=== PATIENT | male | born 1980 | race Caucasian/White ===

== ENCOUNTER 2020-05-15 16:08 | Outpatient (REF) | payer OTHER, SELFPAY | END 2020-05-15 16:09 | disposition home or self-care (01) | LOC: HO.LAB 16:08 | PROVIDERS: Visit Provider Internal Medicine | DX: Z20.828 Contact with and (suspected) exposure to other viral communicable diseases (principal) | CPT/HCPCS: C9803; U0003 ==

== ENCOUNTER 2020-06-16 12:11 | Outpatient (REF) | payer OTHER, SELFPAY | END 2020-06-16 12:12 | disposition home or self-care (01) | LOC: HO.LAB 12:11 | PROVIDERS: Visit Provider Internal Medicine | DX: Z20.828 Contact with and (suspected) exposure to other viral communicable diseases (principal) | CPT/HCPCS: 36415; C9803; U0003 ==

== ENCOUNTER 2020-07-22 09:50 | Emergency (ER) | payer SELFPAY ==
[2020-07-22 10:19] VITALS: BP 142/91; PULSE 98; RESP 16; TEMP 36.9; O2SAT 99; BMI 33.3
--- NOTE | 2020-07-22 11:01 | ED.SKABFB ---
HPI - Skin/Abscess/Foreign Bdy General Chief complaint: Skin/Abscess/Foreign Body Stated complaint: INFECTION HAND Time Seen by Provider: 07/22/20 10:38 Source: patient Mode of arrival: ambulatory Limitations: no limitations History of Present Illness HPI narrative: 40-year-old male past history of eczema here with complaints of bilateral hand swelling, redness and pain times several days., the patient tells me his underlying eczema and is not currently using any medication. He tells me that 3 days ago he started a new job requiring him to wear gloves and he accidentally use latex gloves although he has an allergy. That night he noticed itching and swelling he tells me he has been scratching at the areas quite intensely. No fevers or chills. MD complaint: rash Related Data Previous Rx's Medication Instructions Recorded mupirocin 1 appl TOPICAL BID #15 g 07/22/20 prednisone 60 mg PO DAILY #15 tab 07/22/20 sulfamethoxazole-trimethoprim 1 tab PO Q12H #14 tab 07/22/20 [Bactrim DS] Allergies Allergy/AdvReac Type Severity Reaction Status Date / Time doxycycline [DOXYCYCLINE] Allergy Unknown HIVES Unverified 02/24/20 15:19 latex [LATEX] Allergy Unknown RASH Unverified 02/24/20 15:19 Penicillins [PENICILLINS] Allergy Unknown SWELLING Unverified 02/24/20 15:19 DETERGENT Allergy Intermediate RASH Uncoded 02/24/20 15:19 Review of Systems Review of Systems: Yes all other systems are reviewed and are negative Constitutional: Constitutional: Reports no additional constitutional complaints, Denies body ache(s), Denies chills, Denies fever(s), Denies headache(s) and Denies weakness Eyes: Eyes: Reports no additional eye complaints and Denies change in vision ENT: Reports system reviewed and no additional complaints, except as documented, Denies dizziness, Denies headache(s), Denies nasal congestion, Denies nasal discharge and Denies neck pain Cardiovascular: Cardiovascular: Reports no additional cardiovascular complaints, Denies chest pain, Denies leg edema and Denies dyspnea Respiratory: Respiratory: Reports no additional respiratory complaints, Denies cough and Denies dyspnea Gastrointestinal: Gastrointestinal: Reports no additional gastrointestinal complaints, Denies abdominal pain, Denies diarrhea, Denies nausea and Denies vomiting Genitourinary: Genitourinary: Denies urinary incontinence Musculoskeletal: Musculoskeletal: Reports no additional musculoskeletal complaints, Denies back pain, Denies arthralgias, Denies joint swelling, Denies neck pain, Denies numbness and Denies tingling Integumentary/Breasts: Skin/Breast: Reports system reviewed and no additional complaints, except as docu and Reports rash Neurologic: Reports system reviewed and no additional complaints, except as documented, Denies Abnormal speech present, Denies dizziness, Denies headache(s), Denies numbness, Denies tingling and Denies weakness PMFSH Past Medical History Attestation statement: The following information was validated with the patient. Source: old records reviewed and nursing notes reviewed Medical History Acute eczema Social History Social History Smoking Status: Current every day smoker Use of substances other than those prescribed or required for medical reasons: Yes Substance Use Type: Marijuana Substance Use Frequency: Daily Advance Directives: No Advance Directives Information Provided: No Physical Exam Vital Signs: Vital Signs: Last Vital Signs Temp 98.5 F 07/22/20 10:19 Pulse 98 07/22/20 10:19 Resp 16 07/22/20 10:19 BP 142/91 H 07/22/20 10:19 Pulse Ox 99 07/22/20 10:19 Body Mass Index 33.3 Const: General: cooperative, healthy appearing, comfortable and no acute distress Orientation/consciousness: patient oriented x3 Limitations: no limitations HENMT: Head: Yes normal to inspection Ears: hearing grossly normal bilaterally General nose exam: Normal external nose present Face and sinus: Yes normal facial exam Mouth: Normal oral and palatal mucosa present Throat: Yes posterior oropharynx normal Eyes: General: appearance normal, both eyes and all related structures Pupils: Equal, round and reactive pupils present Neck: Neck: Yes normal visual inspection Chest: Chest palpation & inspection: normal inspection of the chest Resp: Effort & Inspection: normal respiratory effort Auscultation: clear to auscultation bilaterally Cardio: Rate: regular rate Rhythm: regular rhythm Peripheral pulses: Peripheral pulses 2+ throughout GI: Inspection: Yes normal to inspection Palpation (GI): Soft to palpation and nontender Auscultation: normal bowel sounds Back/Spine/Pelvis: Thoracic/Lumbar Spine: thoracic and lumbar spine normal to inspection Skin: Other: Mild warmth. Full range of motion. Neurovascular intact distally. Normal cap refill. Palpable pulses General skin exam: no rashes or lesions noted Neuro: General: patient oriented x3, no focal motor deficits and normal sensation to monofilament Cranial nerves: Yes Equal, round and reactive pupils present Cognition (Neuro): normal cognition Speech: No Abnormal speech present Gait exam (Neuro): Normal gait present Motor exam (neuro): 5/5 motor strength present throughout Extrem: General: Yes normal to inspection Course Course Course Narrative: Likely irritant dermatitis secondary to latex gloves with superimposed cellulitis. No systemic signs or symptoms of infection. Patient has full range of motion of extremities and is neurovascular intact distally. Will start patient on oral antibiotics, oral prednisone, topical antibiotic ointment and follow up with his primary care doctor. Reviewed worrisome signs and symptoms of when to return to the emergency department. Comfortable discharge home. Discharge Plan Discharge Clinical Impression: Eczema, Contact dermatitis, Cellulitis Patient Disposition: Home, Self-Care Instructions: Contact Dermatitis (ED), Cellulitis (ED) Additional Instructions: Start antibiotics and prednisone today Start topical antibiotic ointment and keep them covered We will hold on topical steroids until wounds are healed. Follow-up with your PCP next week. Return here for fevers, chills, worsening redness, swelling or drainage as discussed Prescriptions: New sulfamethoxazole-trimethoprim [Bactrim DS] 800-160 mg tablet 1 tab PO Q12H Qty: 14 RF: 0 prednisone 20 mg tablet 60 mg PO DAILY Qty: 15 RF: 0 mupirocin 2 % ointment 1 appl topical BID Qty: 15 RF: 0 Referrals: Physician,Unknown [Primary Care Provider] - 2 days Stand Alone Forms: Work/School Release Interventions: ED Discharge Assessment Last Done: 07/22/20 11:25 Discharge Date/Time: 07/22/20 11:26
== END 2020-07-22 11:26 | disposition home or self-care (01) ==
PROVIDERS: Emergency Provider Emergency Medicine Emergency Medical Services
DX: L24.89 Irritant contact dermatitis due to other agents (principal); L03.114 Cellulitis of left upper limb; L03.113 Cellulitis of right upper limb
CPT/HCPCS: 99283

== ENCOUNTER 2020-08-04 13:23 | Emergency (ER) | payer MEDICAID, SELFPAY ==
[2020-08-04 13:26] VITALS: BP 122/89; PULSE 105; RESP 16; TEMP 36.6; O2SAT 99; BMI 33.0
--- NOTE | 2020-08-04 13:46 | ED.GENADULT ---
HPI - General Adult General Chief complaint: General Medical Stated complaint: rash hands Time Seen by Provider: 08/04/20 13:39 Source: patient Mode of arrival: ambulatory Limitations: no limitations History of Present Illness HPI narrative: 40 y/o male with history of eczema and recent cellulitis & contact dermatitis of his hands presents back with dry skin on the dorsum of his hands with itching and redness. He states he was prescribed steroids, antibiotic pills and cream with improvement in his symptoms. When he ran out of the cream he started to get more itchy. He has been using Aquaphor once per day. He states his hands hurt from cracked skin. No drainage of pus, no fever, no chills. No injuries. MD complaint: hand rash Onset (ago): week(s) (2) Location: left, right and upper extremity Radiation: extremity (right wrist and lower forearm ) Severity: severe and similar to prior episodes Severity scale (1-10): 5 Quality: burning Pain Consistency: constant Relieving factors: medication Exacerbating factors: other (washing ) Associated symptoms: denies other symptoms Treatments prior to arrival: none Related Data Previous Rx's Medication Instructions Recorded mupirocin 1 appl TOPICAL BID #15 g 07/22/20 prednisone 60 mg PO DAILY #15 tab 07/22/20 sulfamethoxazole-trimethoprim 1 tab PO Q12H #14 tab 07/22/20 [Bactrim DS] hydrocortisone 1 appl TOPICAL QD-TID PRN #28.35 g 08/04/20 mupirocin 1 appl TOPICAL TID #22 g 08/04/20 sulfamethoxazole-trimethoprim 1 tab PO BID #10 tab 08/04/20 [Bactrim DS] Allergies Allergy/AdvReac Type Severity Reaction Status Date / Time doxycycline [DOXYCYCLINE] Allergy Unknown HIVES Unverified 02/24/20 15:19 latex [LATEX] Allergy Unknown RASH Unverified 02/24/20 15:19 Penicillins [PENICILLINS] Allergy Unknown SWELLING Unverified 02/24/20 15:19 DETERGENT Allergy Intermediate RASH Uncoded 02/24/20 15:19 Review of Systems Review of Systems: Constitutional: No Fever, No Chills Gastrointestinal: No Nausea, No Vomiting Musculoskeletal: No joint pain, No Myalgias Skin: + Skin Lesions, + rash Neuro: No Weakness, No Numbness Heme/Lymph: No Bruising, No Lymphadenopathy PMFSH Past Medical History Attestation statement: The following information was validated with the patient. Medical History Acute eczema Social History Social History Smoking Status: Current every day smoker Substance Use Type: Marijuana Advance Directives: No Advance Directives Information Provided: No Physical Exam Vital Signs: Vital Signs: Last Vital Signs Temp 97.8 F 08/04/20 13:26 Pulse 105 H 08/04/20 13:26 Resp 16 08/04/20 13:26 BP 122/89 08/04/20 13: Pulse Ox 99 08/04/20 13:26 Body Mass Index 33.0 Appearance: Alert. Oriented X3. No acute distress. HEENT: normal inspection CVS: Normal heart rate and rhythm. Pulses normal. Respiratory: No respiratory distress. Skin: Skin warm and dry. Normal skin color. Normal skin turgor. No rashes. Extremities: bilateral dorsal hands with dry, cracked skin throughout hands and dorsal fingers, erythema and slight warmth of right wrist and lower forearm. NV intact distally with full ROM of fingers and wrists bilaterally Neuro: Oriented X 3. No motor deficit. No sensory deficit. Course Course Course Narrative: 40 y/o male presenting with hand rash - itchy and painful. Seen here 07/22 for the same, photos reviewed and patient's presentation is improved from that encounter. He reports improvement as well but does not want it to escalate to that level again. He denies irritant exposures. Not moisturizing often enough. Has not seen Derm. Mild cellultiis of right wrist/forearm which we will treat with oral abx. Will hold off on Prednisone course and try topical hydrocortisone ointment 2.5% along with topical mupirocin which was helping him. He agrees to follow up with Dermatology and monitor for signs of worsening infection. Stable for d/c. Critical Care Time Critical Care Time Critical Care Time: No Discharge Plan Discharge Clinical Impression: Cellulitis Qualifiers: Site of cellulitis: extremity Site of cellulitis of extremity: upper extremity Laterality: right Qualified Code(s): L03.113 - Cellulitis of right upper limb Eczema Qualifiers: Eczema type: unspecified Qualified Code(s): L30.9 - Dermatitis, unspecified Patient Disposition: Home, Self-Care Instructions: Cellulitis (ED), Eczema (ED) Additional Instructions: Use the prescribed ointments as directed. Keep your hands moisturized with Aquaphor at least 3 times per day. Limit hand washing if possible. Moisturize after each washing. Use scent and fragrant free soap and lotion. Take Benadryl 25-50 mg every 6 hours as needed for itching. Follow up with Dermatology. If you notice the redness is worsening or if you develop fever or chills come back to the ER for further evaluation. Prescriptions: New hydrocortisone 2.5 % ointment 1 appl topical QD-TID PRN (Reason: itching) Qty: 28.35 RF: 0 mupirocin 2 % ointment 1 appl topical TID Qty: 22 RF: 1 sulfamethoxazole-trimethoprim [Bactrim DS] 800-160 mg tablet 1 tab PO BID Qty: 10 RF: 0 No Action sulfamethoxazole-trimethoprim [Bactrim DS] 800-160 mg tablet 1 tab PO Q12H Qty: 14 RF: 0 prednisone 20 mg tablet 60 mg PO DAILY Qty: 15 RF: 0 mupirocin 2 % ointment 1 appl topical BID Qty: 15 RF: 0 Referrals: Ariadna Alcantara PA-C [Physician [facility]] - 2 days (severe eczema)
== END 2020-08-04 14:09 | disposition home or self-care (01) ==
LOC: HO.ED 13:49
PROVIDERS: Emergency Provider Emergency Medicine Emergency Medical Services
DX: L03.113 Cellulitis of right upper limb (principal); L30.9 Dermatitis, unspecified; M79.641 Pain in right hand; F12.90 Cannabis use, unspecified, uncomplicated; Z79.899 Other long term (current) drug therapy
CPT/HCPCS: 99283

== ENCOUNTER 2020-11-18 07:54 | Emergency (ER) | payer OTHER, SELFPAY ==
[2020-11-18 07:59] VITALS: BP 138/77; PULSE 84; RESP 18; TEMP 36.7; O2SAT 97; BMI 34.2
--- NOTE | 2020-11-18 09:29 | ED.GENADULT ---
HPI - General Adult General Chief complaint: General Medical Stated complaint: hand rash Time Seen by Provider: 11/18/20 09:22 Source: patient Mode of arrival: ambulatory Limitations: no limitations History of Present Illness HPI narrative: Patient is a 40-year-old male with a past medical history of eczema who is here for a rash on his bilateral hands. He states that 2 days ago while he was at work, he was wearing and Nitrol gloves for an extended period of time when he took them off, he gets these hands were swollen. He woke up the next morning and they were even more swollen and cracking with dry skin. He says they are slightly painful but he denies any fevers Throat sewing lip swelling or difficulty managing his secretions. Related Data Previous Rx's Medication Instructions Recorded mupirocin 1 appl TOPICAL BID #15 g 07/22/20 prednisone 60 mg PO DAILY #15 tab 07/22/20 sulfamethoxazole-trimethoprim 1 tab PO Q12H #14 tab 07/22/20 [Bactrim DS] hydrocortisone 1 appl TOPICAL QD-TID PRN #28.35 g 08/04/20 mupirocin 1 appl TOPICAL TID #22 g 08/04/20 sulfamethoxazole-trimethoprim 1 tab PO BID #10 tab 08/04/20 [Bactrim DS] triamcinolone acetonide 1 appl TOPICAL BID #80 g 11/18/20 Allergies Allergy/AdvReac Type Severity Reaction Status Date / Time doxycycline [DOXYCYCLINE] Allergy Unknown HIVES Unverified 02/24/20 15:19 latex [LATEX] Allergy Unknown RASH Unverified 02/24/20 15:19 Penicillins [PENICILLINS] Allergy Unknown SWELLING Unverified 02/24/20 15:19 DETERGENT Allergy Intermediate RASH Uncoded 02/24/20 15:19 Review of Systems Review of Systems: Yes all other systems are reviewed and are negative [facility] Past Medical History Medical History Acute eczema Social History Social History Substance Use Type: Marijuana Advance Directives: Yes Advance Directives Information Provided: No Advance Directives on File: No Physical Exam Vital Signs: Vital Signs: Last Vital Signs Temp 98.1 F 11/18/20 07:59 Pulse 84 11/18/20 07:59 Resp 18 11/18/20 07:59 BP 138/77 11/18/20 07:59 Pulse Ox 97 11/18/20 07:59 Body Mass Index 34.2 Const: General: cooperative, healthy appearing, comfortable, no acute distress and well developed Orientation/consciousness: patient oriented x3 Limitations: no limitations HENMT: Head: Yes normal to inspection Eyes: General: appearance normal, both eyes and all related structures Neck: Neck: Yes normal visual inspection and Yes full ROM Resp: Effort & Inspection: normal respiratory effort and able to speak in complete sentences Skin: Other: Bilateral hands slightly swollen, very dry cracked, NVI, full range of motion, no signs of infection noted. Neuro: General: patient oriented x3 Extrem: General: Yes normal to inspection Discharge Plan Discharge Clinical Impression: Allergic (intrinsic) eczema Patient Disposition: Home, Self-Care Instructions: Eczema (ED) Additional Instructions: As discussed, I have given you 1 dose of oral prednisone in the emergency department today and sent a steroid cream to your pharmacy. If you develop any throat swelling or lip swelling or inability to swallow your own secretions, please call 911 or return to the emergency department. Please follow-up with your PCP next week if your symptoms do not resolve on your hands. Prescriptions: New triamcinolone acetonide 0.025 % ointment 1 appl topical BID Qty: 80 RF: 0 No Action hydrocortisone 2.5 % ointment 1 appl topical QD-TID PRN (Reason: itching) Qty: 28.35 RF: 0 mupirocin 2 % ointment 1 appl topical TID Qty: 22 RF: 1 sulfamethoxazole-trimethoprim [Bactrim DS] 800-160 mg tablet 1 tab PO BID Qty: 10 RF: 0 sulfamethoxazole-trimethoprim [Bactrim DS] 800-160 mg tablet 1 tab PO Q12H Qty: 14 RF: 0 prednisone 20 mg tablet 60 mg PO DAILY Qty: 15 RF: 0 mupirocin 2 % ointment 1 appl topical BID Qty: 15 RF: 0
[2020-11-18] MEDS: predniSONE 20 MG TABLET PO (09:43)
== END 2020-11-18 09:47 | disposition home or self-care (01) ==
PROVIDERS: Emergency Provider Emergency Medicine Emergency Medical Services
DX: L20.84 Intrinsic (allergic) eczema (principal)
CPT/HCPCS: 99283

== ENCOUNTER 2020-12-08 15:11 | Emergency (ER) | payer OTHER, SELFPAY ==
[2020-12-08 15:24] VITALS: BP 120/86; PULSE 82; RESP 16; TEMP 36.6; O2SAT 98; BMI 30.8
--- NOTE | 2020-12-08 15:34 | ED_ITS ---
HPI - Skin/Abscess/Foreign Bdy General Chief complaint: Skin/Abscess/Foreign Body Stated complaint: rash ? allergic reaction Time Seen by Provider: 12/08/20 15:33 Source: patient Mode of arrival: ambulatory Limitations: no limitations History of Present Illness HPI narrative: Patient very allergic to laundry detergent. washed his clothes and a public laundromat after someone else removed their clothes and since then he has had itching rash all over his body. Related Data Previous Rx's Medication Instructions Recorded mupirocin 1 appl TOPICAL BID #15 g 07/22/20 prednisone 60 mg PO DAILY #15 tab 07/22/20 sulfamethoxazole-trimethoprim 1 tab PO Q12H #14 tab 07/22/20 [Bactrim DS] hydrocortisone 1 appl TOPICAL QD-TID PRN #28.35 g 08/04/20 mupirocin 1 appl TOPICAL TID #22 g 08/04/20 sulfamethoxazole-trimethoprim 1 tab PO BID #10 tab 08/04/20 [Bactrim DS] triamcinolone acetonide 1 appl TOPICAL BID #80 g 11/18/20 prednisone 60 mg PO DAILY #15 tab 12/08/20 Allergies Allergy/AdvReac Type Severity Reaction Status Date / Time doxycycline [DOXYCYCLINE] Allergy Unknown HIVES Verified 12/08/20 15:56 latex [LATEX] Allergy Unknown RASH Verified 12/08/20 15:56 Penicillins [PENICILLINS] Allergy Unknown SWELLING Verified 12/08/20 15:56 DETERGENT Allergy Intermediate RASH Uncoded 02/24/20 15:19 Review of Systems Review of Systems: Yes all other systems are reviewed and are negative Constitutional: Constitutional: Reports no additional constitutional complaints, Denies body ache(s), Denies chills, Denies fever(s), Denies headache(s) and Denies weakness Eyes: Eyes: Reports no additional eye complaints and Denies change in vision ENT: Reports system reviewed and no additional complaints, except as documented, Denies dizziness, Denies headache(s), Denies nasal congestion, Denies nasal discharge and Denies neck pain Cardiovascular: Cardiovascular: Reports no additional cardiovascular complaints, Denies chest pain, Denies leg edema and Denies dyspnea Respiratory: Respiratory: Reports no additional respiratory complaints, Denies cough and Denies dyspnea Gastrointestinal: Gastrointestinal: Reports no additional gastrointestinal complaints, Denies abdominal pain, Denies diarrhea, Denies nausea and Denies vomiting Genitourinary: Genitourinary: Denies urinary incontinence Musculoskeletal: Musculoskeletal: Reports no additional musculoskeletal complaints, Denies back pain, Denies arthralgias, Denies joint swelling, Denies neck pain, Denies numbness and Denies tingling Integumentary/Breasts: Skin/Breast: Reports system reviewed and no additional complaints, except as docu and Reports rash Neurologic: Reports system reviewed and no additional complaints, except as documented, Denies Abnormal speech present, Denies dizziness, Denies headache(s), Denies numbness, Denies tingling and Denies weakness PMFSH Past Medical History Attestation statement: The following information was validated with the patient. Source: old records reviewed and nursing notes reviewed Medical History Acute eczema Social History Social History Substance Use Type: Marijuana Advance Directives: No Advance Directives Information Provided: Yes Physical Exam Vital Signs: Vital Signs: Last Vital Signs Temp 97.8 F 12/08/20 15:24 Pulse 82 12/08/20 15:24 Resp 16 12/08/20 15:24 BP 120/86 12/08/20 15:24 Pulse Ox 98 12/08/20 15:24 Body Mass Index 30.8 Const: General: cooperative, healthy appearing, comfortable and no acute distress Orientation/consciousness: patient oriented x3 Limitations: no limitations HENMT: Head: Yes normal to inspection Ears: hearing grossly normal bilaterally General nose exam: Normal external nose present Face and sinus: Yes normal facial exam Mouth: Normal oral and palatal mucosa present Throat: Yes posterior oropharynx normal Eyes: General: appearance normal, both eyes and all related structures Pupils: Equal, round and reactive pupils present Neck: Neck: Yes normal visual inspection Chest: Chest palpation & inspection: normal inspection of the chest Resp: Effort & Inspection: normal respiratory effort Auscultation: clear to auscultation bilaterally Cardio: Rate: regular rate Rhythm: regular rhythm Peripheral pulses: Peripheral pulses 2+ throughout GI: Inspection: Yes normal to inspection Palpation (GI): Soft to palpation and nontender Auscultation: normal bowel sounds Back/Spine/Pelvis: Thoracic/Lumbar Spine: thoracic and lumbar spine normal to inspection Skin: Other: Urticarial rash noticed diffusely Neuro: General: patient oriented x3, no focal motor deficits and normal s ensation to monofilament Cranial nerves: Yes Equal, round and reactive pupils present Cognition (Neuro): normal cognition Speech: No Abnormal speech present Gait exam (Neuro): Normal gait present Motor exam (neuro): 5/5 motor strength present throughout Extrem: General: Yes normal to inspection Course Course Course Narrative: irritant dermatitis likely secondary to exposure to detergent. Has Benadryl and topical hydrocortisone at home. Will add prednisone burst. reviewed worrisome signs and symptoms and when to return to the emergency department. Comfortable discharge home. MDM - Skin/Abscess/Foreign Bdy Medical Records Attestation: I reviewed the patient's medical records. Lab Data Attestation: I reviewed the patient's lab results. Discharge Plan Discharge Clinical Impression: Contact dermatitis Patient Disposition: Home, Self-Care Instructions: Dermatitis (ED) Prescriptions: New prednisone 20 mg tablet 60 mg PO DAILY Qty: 15 RF: 0 No Action hydrocortisone 2.5 % ointment 1 appl topical QD-TID PRN (Reason: itching) Qty: 28.35 RF: 0 mupirocin 2 % ointment 1 appl topical TID Qty: 22 RF: 1 sulfamethoxazole-trimethoprim [Bactrim DS] 800-160 mg tablet 1 tab PO BID Qty: 10 RF: 0 sulfamethoxazole-trimethoprim [Bactrim DS] 800-160 mg tablet 1 tab PO Q12H Qty: 14 RF: 0 prednisone 20 mg tablet 60 mg PO DAILY Qty: 15 RF: 0 mupirocin 2 % ointment 1 appl topical BID Qty: 15 RF: 0 triamcinolone acetonide 0.025 % ointment 1 appl topical BID Qty: 80 RF: 0 Referrals: Physician,None [Physician] - 2 days Interventions: ED Discharge Assessment Last Done: 12/08/20 15:59 Discharge Date/Time: 12/08/20 16:00
== END 2020-12-08 16:00 | disposition home or self-care (01) ==
LOC: HO.ED 15:43
PROVIDERS: Emergency Provider Emergency Medicine Emergency Medical Services; PCP Nurse Practitioner Pediatrics
DX: T55.0X1A Toxic effect of soaps, accidental (unintentional), initial encounter (principal); L24.5 Irritant contact dermatitis due to other chemical products; Y92.9 Unspecified place or not applicable
CPT/HCPCS: 99283

== ENCOUNTER 2021-01-07 07:19 | Emergency (ER) | payer OTHER, SELFPAY ==
[2021-01-07 07:25] VITALS: BP 133/94; PULSE 78; RESP 18; TEMP 35.9; O2SAT 100; BMI 31.6
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
[2021-01-07] MEDS: predniSONE 20 MG TABLET 60 MG PO (08:43)
[2021-01-07] MEDS: Ketorolac Tromethamine 15 MG/ML VIAL IM (08:46)
== END 2021-01-07 09:03 | disposition home or self-care (01) ==
PROVIDERS: Emergency Provider Student in an Organized Health Care Education/Training Program
DX: L30.9 Dermatitis, unspecified (principal); M54.5 Low back pain; Z79.899 Other long term (current) drug therapy
CPT/HCPCS: 96372; 99283; J1885

== ENCOUNTER 2021-01-17 07:38 | Emergency (ER) | payer OTHER, SELFPAY ==
[2021-01-17 07:39] VITALS: BP 140/88; PULSE 72; RESP 16; TEMP 36.2; O2SAT 99; BMI 32.5
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
== END 2021-01-17 08:24 | disposition home or self-care (01) ==
PROVIDERS: Emergency Provider Emergency Medicine Emergency Medical Services; PCP Nurse Practitioner Pediatrics
DX: T23.402A Corrosion of unspecified degree of left hand, unspecified site, initial encounter (principal); T23.401A Corrosion of unspecified degree of right hand, unspecified site, initial encounter; T21.44XA Corrosion of unspecified degree of lower back, initial encounter; Y93.89 Activity, other specified; Y92.63 Factory as the place of occurrence of the external cause; Y99.0 Civilian activity done for income or pay
CPT/HCPCS: 99283

== ENCOUNTER 2021-01-22 14:38 | Emergency (ER) | payer OTHER, SELFPAY | END 2021-01-22 15:38 | disposition left against medical advice (07) | PROVIDERS: Emergency Provider Internal Medicine | DX: T30.0 Burn of unspecified body region, unspecified degree (principal); Y99.9 Unspecified external cause status ==

== ENCOUNTER 2021-01-24 08:30 | Emergency (ER) | payer OTHER, SELFPAY ==
[2021-01-24 08:47] VITALS: BP 142/83; PULSE 70; RESP 18; TEMP 36.7; O2SAT 98; BMI 30.8
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
== END 2021-01-24 09:39 | disposition home or self-care (01) ==
PROVIDERS: Emergency Provider Emergency Medicine
DX: T23.69 Corrosion of second degree of multiple sites of wrist and hand (principal); T32.0 Corrosions involving less than 10% of body surface; M79.642 Pain in left hand; M79.641 Pain in right hand; Y93.9 Activity, unspecified; Y92.9 Unspecified place or not applicable; Y99.0 Civilian activity done for income or pay
CPT/HCPCS: 99283

== ENCOUNTER → 2021-01-24 09:32 | Outpatient (BNVA) | payer OTHER, SELFPAY | PROVIDERS: Visit Provider Physician Assistant Medical | DX: T21.64XA Corrosion of second degree of lower back, initial encounter (principal); T65.91XA Toxic effect of unspecified substance, accidental (unintentional), initial encounter | CPT/HCPCS: 99203 ==

== ENCOUNTER 2021-01-30 07:41 | Emergency (ER) | payer OTHER, SELFPAY ==
[2021-01-30 08:11] VITALS: BP 139/70; PULSE 89; RESP 16; TEMP 36.4; O2SAT 97; BMI 30.8
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
== END 2021-01-30 10:07 | disposition home or self-care (01) ==
PROVIDERS: Emergency Provider Emergency Medicine
DX: S39.012A Strain of muscle, fascia and tendon of lower back, initial encounter (principal); V43.52XA Car driver injured in collision with other type car in traffic accident, initial encounter; Y93.89 Activity, other specified; Y92.414 Local residential or business street as the place of occurrence of the external cause; Y99.9 Unspecified external cause status
CPT/HCPCS: 99283

== ENCOUNTER → 2021-02-07 09:08 | Outpatient (BNVA) | payer OTHER, SELFPAY | PROVIDERS: Visit Provider Physician Assistant Medical | DX: T23.001D Burn of unspecified degree of right hand, unspecified site, subsequent encounter (principal); X08.8XXD Exposure to other specified smoke, fire and flames, subsequent encounter | CPT/HCPCS: 99213 ==

== ENCOUNTER → 2021-02-14 14:12 | Outpatient (BNVA) | payer OTHER, SELFPAY | PROVIDERS: Visit Provider Physician Assistant Medical | DX: T23.402D Corrosion of unspecified degree of left hand, unspecified site, subsequent encounter (principal); T23.401D Corrosion of unspecified degree of right hand, unspecified site, subsequent encounter | CPT/HCPCS: 99213 ==

== ENCOUNTER 2021-02-27 08:29 | Outpatient (RCR) | payer OTHER, SELFPAY | END 2021-03-02 12:20 | disposition home or self-care (01) | LOC: HO.WCC 08:29 | PROVIDERS: Visit Provider Physician Assistant | DX: T23.252A Burn of second degree of left palm, initial encounter (principal); T23.251A Burn of second degree of right palm, initial encounter; T23.262A Burn of second degree of back of left hand, initial encounter; T23.261A Burn of second degree of back of right hand, initial encounter; T31.0 Burns involving less than 10% of body surface; F17.210 Nicotine dependence, cigarettes, uncomplicated | CPT/HCPCS: 99212 ==

== ENCOUNTER → 2021-02-27 09:15 | Outpatient (BNVA) | payer OTHER, SELFPAY | PROVIDERS: Visit Provider Physician Assistant Medical | DX: L24.5 Irritant contact dermatitis due to other chemical products (principal) | CPT/HCPCS: 99213 ==

== ENCOUNTER 2021-04-13 08:32 | Emergency (ER) | payer OTHER, SELFPAY ==
[2021-04-13 08:57] VITALS: BP 132/83; PULSE 90; RESP 18; TEMP 36.6; O2SAT 94; BMI 33.0
--- NOTE | 2021-04-13 09:27 | ED_ITS ---
HPI - Skin/Abscess/Foreign Bdy General Chief complaint: Skin/Abscess/Foreign Body Stated complaint: rash Time Seen by Provider: 04/13/21 09:15 Source: patient Mode of arrival: ambulatory Limitations: no limitations History of Present Illness complaint: rash Onset (ago): day(s) (Few days worse today) Location: L hand and R hand Severity: severe Quality: pruritic Pain Consistency: constant Relieving factors: none Exacerbating factors: none Context: other (History of eczema) Associated symptoms: denies other symptoms Treatments prior to arrival: none Related Data Previous Rx's Medication Instructions Recorded mupirocin 2 % topical ointment 1 appl TOPICAL BID #15 g 07/22/20 sulfamethoxazole 800 1 tab PO Q12H #14 tab 07/22/20 mg-trimethoprim 160 mg tablet (Bactrim DS) triamcinolone acetonide 0.025 % 1 appl TOPICAL BID #80 g 11/18/20 topical ointment hydrocortisone acetate 0.5 % 1 appl TOPICAL BID PRN #28.4 g 01/07/21 topical cream ibuprofen 400 mg tablet 400 mg PO Q8H PRN #30 tab 01/07/21 prednisone 20 mg tablet 60 mg PO DAILY 7 Days #21 tab 01/07/21 acetaminophen 500 mg tablet 1,000 mg PO QID PRN #14 tab 01/24/21 (Tylenol Extra Strength) hydrocortisone 2.5 % topical 1 appl TOPICAL QD-TID PRN #454 g 01/24/21 ointment ibuprofen 800 mg tablet 800 mg PO Q8H PRN #14 tab 01/24/21 oxycodone 5 mg tablet 5 mg PO BID PRN #10 tab 01/24/21 ibuprofen 600 mg tablet 600 mg PO Q6H PRN #20 tab 01/30/21 cephalexin 500 mg capsule 500 mg PO Q6H 10 Days #40 cap 04/13/21 hydrocortisone 2.5 % topical 1 appl TOPICAL QD-TID PRN #454 g 04/13/21 ointment prednisone 20 mg tablet 40 mg PO DAILY 5 Days #10 tab 04/13/21 Allergies Allergy/AdvReac Type Severity Reaction Status Date / Time doxycycline [DOXYCYCLINE] Allergy Unknown HIVES Verified 12/08/20 15:56 latex [LATEX] Allergy Unknown RASH Verified 12/08/20 15:56 Penicillins [PENICILLINS] Allergy Unknown SWELLING Verified 12/08/20 15:56 DETERGENT Allergy Intermediate RASH Uncoded 02/24/20 15:19 Review of Systems Review of Systems: Constitutional : No Fever, No Chills , no body aches, no recent illness Head/Face: No facial swelling, No facial redness ENT/Mouth : No oral/throat swelling, No Hoarseness, No Swallowing Difficulty Eyes: No Eye Pain, No Swelling, No Redness Cardiovascular : No Chest Pain, No SOB, No palpitations Respiratory : No Cough, No Sputum, No Wheezing, No Smoke Exposure, No Dyspnea Gastrointestinal : No Nausea, No Vomiting, No Diarrhea, No abdominal Pain Genitourinary : No Dysuria, No Urinary Frequency, No Hematuria Musculoskeletal : No joint pain, No Myalgias, No Joint Swelling Skin : No Skin Lesions, positive rash Neuro : No Weakness, No Numbness, No Headache, No dizziness, No tingling Psych : No Anxiety/Panic, No Depression Heme/Lymph: No Bruising, No Lymphadenopathy Endocrine : No Polyuria, No Polydipsia Denies changes in lotions or detergents. Denies new medications or any changes in medications. Denies drainage from rash. Denies any recent sick contacts or recent travel. Yes all other systems are reviewed and are negative PMFSH Past Medical History Attestation statement: The following information was validated with the patient. Medical History Acute eczema Social History Social History Substance Use Type: Marijuana Advance Directives: No Physical Exam Vital Signs: Vital Signs: Last Vital Signs Temp 97.8 F 04/13/21 08:57 Pulse 90 04/13/21 08:57 Resp 18 04/13/21 08:57 BP 132/83 04/13/21 08:57 Pulse Ox 94 04/13/21 08:57 Body Mass Index 33.0 vital signs have been reviewed as normal and appeared to be correct. Blood pressure normal Heart rate normal. Respiration rate normal. Temperature normal. Oxygen saturation normal. Appearance: Alert. Oriented X3. No acute distress. Head: Normal external exam. Normocephalic. Atraumatic. Eyes: PERRLA. EOMI. Conjunctiva and sclera normal. Eyelids normal. ENT: Pharynx normal. Uvula midline. Moist mucous membranes. Neck: Normal inspection. Neck supple. FROM. CVS: Normal heart rate and rhythm. Respiratory: No respiratory distress. Painless inspiration. Skin: Skin warm and dry. Normal skin color. Normal skin turgor. Eczema rash to bilateral hands with surrounding erythema may be superimposed with cellulitic infection. Otherwise no drainage noted or streaking. No additional rashes/lesions/lacerations noted. Extremities: Extremities exhibit normal range of motion. Extremities nontender. Neuro: Oriented X 3. No motor deficit. No sensory deficit. Reflexes normal. Normal steady gait. No focal neuro deficits noted. Vascular: + radial pulses/+ 2 distal pedal pulses/+2 dorsalis pedis b/l. Normal cap refill. No cyanosis noted to upper extremity nails and lower extremity toes nails. Course Course Course Narrative: Patient with eczema rash possibly superimposed cellulitic infection will DC home with topical steroids and p.o. steroids along with antibiotics and instructions to return if any new or worsening symptoms to follow up with primary care provider. Patient understands agrees with this plan. MDM - Skin/Abscess/Foreign Bdy Medical Records Attestation: I reviewed the patient's medical records. Discharge Plan Discharge Clinical Impression: Cellulitis, Eczema Patient Disposition: Home, Self-Care Instructions: Cellulitis (ED), Eczema (ED) Prescriptions: New prednisone 20 mg tablet 40 mg PO DAILY 5 Days Qty: 10 RF: 0 cephalexin 500 mg capsule 500 mg PO Q6H 10 Days Qty: 40 RF: 0 hydrocortisone 2.5 % ointment 1 appl topical QD-TID PRN (Reason: skin irritation) Qty: 454 RF: 0 No Action ibuprofen 800 mg tablet 800 mg PO Q8H PRN (Reason: pain) Qty: 14 RF: 0 acetaminophen [Tylenol Extra Strength] 500 mg tablet 1,000 mg PO QID PRN (Reason: fever or pain) Qty: 14 RF: 0 hydrocortisone 2.5 % ointment 1 appl topical QD-TID PRN (Reason: skin irritation) Qty: 454 RF: 0 oxycodone 5 mg tablet 5 mg PO BID PRN (Reason: pain) Qty: 10 RF: 0 ibuprofen 600 mg tablet 600 mg PO Q6H PRN (Reason: pain) Qty: 20 RF: 0 sulfamethoxazole-trimethoprim [Bactrim DS] 800-160 mg tablet 1 tab PO Q12H Qty: 14 RF: 0 mupirocin 2 % ointment 1 appl topical BID Qty: 15 RF: 0 triamcinolone acetonide 0.025 % ointment 1 appl topical BID Qty: 80 RF: 0 hydrocortisone acetate 0.5 % cream 1 appl topical BID PRN (Reason: eczema) Qty: 28.4 RF: 0 prednisone 20 mg tablet 60 mg PO DAILY 7 Days Qty: 21 RF: 0 ibuprofen 400 mg tablet 400 mg PO Q8H PRN (Reason: back p) Qty: 30 RF: 0 Referrals: Physician,None [Primary Care Provider] - 2 days (your pcp) Interventions: ED Discharge Assessment Last Done: 04/13/21 09:35 Print Language: Ethiopian
== END 2021-04-13 09:35 | disposition home or self-care (01) ==
PROVIDERS: Emergency Provider Emergency Medicine
DX: L03.114 Cellulitis of left upper limb (principal); L03.113 Cellulitis of right upper limb; L30.9 Dermatitis, unspecified
CPT/HCPCS: 99283

== ENCOUNTER 2021-04-28 09:20 | Emergency (ER) | payer OTHER, SELFPAY ==
[2021-04-28 09:44] VITALS: BP 126/90; PULSE 95; RESP 16; TEMP 36.6; O2SAT 97; BMI 33.0
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
== END 2021-04-28 10:14 | disposition home or self-care (01) ==
PROVIDERS: Emergency Provider Emergency Medicine Emergency Medical Services
DX: L30.9 Dermatitis, unspecified (principal)
CPT/HCPCS: 99283

== ENCOUNTER 2022-05-28 08:24 | Emergency (ER) | payer OTHER, SELFPAY ==
[2022-05-28 08:28] VITALS: BP 133/94; PULSE 88; RESP 18; TEMP 36.7; O2SAT 98; BMI 33.0
--- NOTE | 2022-05-28 10:55 | ED_ITS ---
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 in the wait was too heavy and it tipped the fork lift abruptly forward and then at rock back straining his back and left wrist, the forklift did not fall over and he did not fall out of the forklift Related Data Previous Rx's Medication Instructions Recorded mupirocin 2 % topical ointment 1 appl topical BID #15 grams 07/22/20 sulfamethoxazole 800 1 tab PO Q12H #14 tabs 07/22/20 mg-trimethoprim 160 mg tablet (Bactrim DS) triamcinolone acetonide 0.025 % 1 appl topical BID #80 grams 11/18/20 topical ointment hydrocortisone acetate 0.5 % 1 appl topical BID PRN eczema 01/07/21 topical cream #28.4 grams ibuprofen 400 mg tablet 400 mg PO Q8H PRN back p #30 tabs 01/07/21 prednisone 20 mg tablet 60 mg PO DAILY dermatitis 7 days 01/07/21 #21 tabs acetaminophen 500 mg tablet 1,000 mg PO QID PRN fever or pain 01/24/21 (Tylenol Extra Strength) #14 tabs hydrocortisone 2.5 % topical 1 appl topical QD-TID PRN skin 01/24/21 ointment irritation #454 grams ibuprofen 800 mg tablet 800 mg PO Q8H PRN pain #14 tabs 01/24/21 oxycodone 5 mg tablet 5 mg PO BID PRN pain #10 tabs 01/24/21 ibuprofen 600 mg tablet 600 mg PO Q6H PRN pain #20 tabs 01/30/21 cephalexin 500 mg capsule 500 mg PO Q6H 10 days #40 caps 04/13/21 hydrocortisone 2.5 % topical 1 appl topical QD-TID PRN skin 04/13/21 ointment irritation #454 grams prednisone 20 mg tablet 40 mg PO DAILY rash 5 days #10 tabs 04/13/21 cetirizine 10 mg capsule 10 mg PO DAILY PRN allergy 04/28/21 symptoms #14 caps prednisone 10 mg tablet 10 mg PO DAILY 12 days #12 tabs 04/28/21 acetaminophen 500 mg tablet 1,000 mg PO QID PRN pain #30 tabs 05/28/22 ibuprofen 600 mg tablet 600 mg PO Q6H PRN pain #20 tabs 05/28/22 Allergies Allergy/AdvReac Type Severity Reaction Status Date / Time doxycycline [DOXYCYCLINE] Allergy Unknown HIVES Verified 12/08/20 15:56 latex [LATEX] Allergy Unknown RASH Verified 12/08/20 15:56 Penicillins [PENICILLINS] Allergy Unknown SWELLING Verified 12/08/20 15:56 DETERGENT Allergy Intermediate RASH Uncoded 02/24/20 15:19 Review of Systems Review of Systems: Positive for back pain and left wrist pain Negatives are no dizziness no weakness no headache no head injury no loss of consciousness no fainting no feeling faint no neck pain no numbness weakness or tingling no chest pain no shortness of breath no abdominal pain no nausea vomiting or diarrhea, no changes to bowel or bladder no incontinence no frequency, no loss of sensation, no muscle weakness no radiation of pain Yes all other systems are reviewed and are negative [facility] Past Medical History Source: nursing notes reviewed Medical History Acute eczema Social History Social History Substance Use Type: Marijuana Advance Directives: No Advance Directives Information Provided: Yes Physical Exam Vital Signs: Vital Signs: Last Vital Signs Temp 98.1 F 05/28/22 08:28 Pulse 88 05/28/22 08:28 Resp 18 05/28/22 08:28 BP 133/94 H 05/28/22 08:28 Pulse Ox 98 05/28/22 08:28 O2 Del Method 05/28/22 08:28 BMI result Body Mass Index 33.0 General appearance is no acute distress Head is normocephalic atraumatic Neck is supple Respiratory no distress Chest wall nontender Chest clear to auscultation bilateral Heart no murmur Abdomen soft nontender The back had paraspinal soft tissue lower lumbar tenderness, there is no focal bony tenderness, pain easily reproduced with movement, skin of the back was normal Extremities full range of motion x4 including left wrist which had very minor dorsal tenderness no swelling no discomfort with range of motion there is full range motion in all joints of left arm there was no swelling no redness no warmth no lacerations no snuffbox tenderness and no pain with axial loading of the thumb and hand had comfortable full range of motion Neuro no focal motor sensory deficits Course Course Course Narrative: Well-appearing patient with muscle strains in the back but no neurologic deficit, no changes to bowel or bladder is discharged to follow with work connection as needed He ambulated easily on discharge Discharge Plan Discharge Clinical Impression: Strain of lumbar region, Sprain and strain of left wrist Patient Disposition: Home, Self-Care Additional Instructions: You likely have strained muscles in your lower back as well as a strained left wrist These injuries usually get better in several days, you can follow with work connection for work related injury Return any time any worse condition or any concerns Prescriptions: New acetaminophen 500 mg tablet 1,000 mg PO QID PRN (Reason: pain) Qty: 30 0RF ibuprofen 600 mg tablet 600 mg PO Q6H PRN (Reason: pain) Qty: 20 0RF No Action ibuprofen 800 mg tablet 800 mg PO Q8H PRN (Reason: pain) Qty: 14 0RF acetaminophen [Tylenol Extra Strength] 500 mg tablet 1,000 mg PO QID PRN (Reason: fever or pain) Qty: 14 0RF hydrocortisone 2.5 % ointment 1 appl topical QD-TID PRN (Reason: skin irritation) Qty: 454 0RF oxycodone 5 mg tablet 5 mg PO BID PRN (Reason: pain) Qty: 10 0RF ibuprofen 600 mg tablet 600 mg PO Q6H PRN (Reason: pain) Qty: 20 0RF sulfamethoxazole-trimethoprim [Bactrim DS] 800-160 mg tablet 1 tab PO Q12H Qty: 14 0RF mupirocin 2 % ointment 1 appl topical BID Qty: 15 0RF triamcinolone acetonide 0.025 % ointment 1 appl topical BID Qty: 80 0RF hydrocortisone acetate 0.5 % cream 1 appl topical BID PRN (Reason: eczema) Qty: 28.4 0RF Rx Instructions: Please place on at night with a glove until the morning. prednisone 20 mg tablet 60 mg PO DAILY 7 Days Qty: 21 0RF ibuprofen 400 mg tablet 400 mg PO Q8H PRN (Reason: back p) Qty: 30 0RF prednisone 20 mg tablet 40 mg PO DAILY 5 Days Qty: 10 0RF cephalexin 500 mg capsule 500 mg PO Q6H 10 Days Qty: 40 0RF hydrocortisone 2.5 % ointment 1 appl topical QD-TID PRN (Reason: skin irritation) Qty: 454 0RF prednisone 10 mg tablet 10 mg PO DAILY 12 Days Qty: 12 0RF Rx Instructions: Prednisone taper dispense QS, 12 day course 60 mg by mouth once a day for 3 days Followed by 40 mg by mouth once a day for 3 days Followed by 20 mg by mouth once a day for 3 days Followed by 10 mg by mouth once a day for 3 days cetirizine 10 mg capsule 10 mg PO DAILY PRN (Reason: allergy symptoms) Qty: 14 0RF Referrals: [facility] [Provider Group] (Back strain and left wrist strain after work injury) Stand Alone Forms: Work/School Release Interventions: ED Discharge Assessment Last Done: 05/28/22 11:04 Discharge Date/Time: 05/28/22 11:05
== END 2022-05-28 11:05 | disposition home or self-care (01) ==
PROVIDERS: Emergency Provider Emergency Medicine Emergency Medical Services
DX: S39.012A Strain of muscle, fascia and tendon of lower back, initial encounter (principal); S66.912A Strain of unspecified muscle, fascia and tendon at wrist and hand level, left hand, initial encounter; S63.502A Unspecified sprain of left wrist, initial encounter; X50.9XXA Other and unspecified overexertion or strenuous movements or postures, initial encounter; Y93.89 Activity, other specified; Y92.63 Factory as the place of occurrence of the external cause; Y99.0 Civilian activity done for income or pay
CPT/HCPCS: 99282; 99283

== ENCOUNTER 2022-09-27 11:52 | Emergency (ER) | payer OTHER, SELFPAY ==
[2022-09-27 11:53] VITALS: BP 129/91; PULSE 99; RESP 18; TEMP 36.7; O2SAT 99; BMI 33.6
--- NOTE | 2022-09-27 11:55 | ED.GENADULT ---
HPI - General Adult General Chief complaint: Skin/Abscess/Foreign Body Stated complaint: Rash on Both Hands Time Seen by Provider: 09/27/22 11:55 Source: patient, RN notes reviewed and old records reviewed Mode of arrival: ambulatory Limitations: no limitations History of Present Illness HPI narrative: 42-year-old male with past medical history significant for eczema presents for evaluation of rash to both hands. He reports that he has been using gloves at work more recently This has been causing a flare his eczema. He reports an itchy rash to the back of both hands and fingers He is using [id number] medications with minimal relief Related Data Previous Rx's Medication Instructions Recorded mupirocin 2 % topical ointment 1 appl topical BID #15 grams 07/22/20 sulfamethoxazole 800 1 tab PO Q12H #14 tabs 07/22/20 mg-trimethoprim 160 mg tablet (Bactrim DS) triamcinolone acetonide 0.025 % 1 appl topical BID #80 grams 11/18/20 topical ointment hydrocortisone acetate 0.5 % 1 appl topical BID PRN eczema 01/07/21 topical cream #28.4 grams ibuprofen 400 mg tablet 400 mg PO Q8H PRN back p #30 tabs 01/07/21 prednisone 20 mg tablet 60 mg PO DAILY dermatitis 7 days 01/07/21 #21 tabs acetaminophen 500 mg tablet 1,000 mg PO QID PRN fever or pain 01/24/21 (Tylenol Extra Strength) #14 tabs hydrocortisone 2.5 % topical 1 appl topical QD-TID PRN skin 01/24/21 ointment irritation #454 grams ibuprofen 800 mg tablet 800 mg PO Q8H PRN pain #14 tabs 01/24/21 oxycodone 5 mg tablet 5 mg PO BID PRN pain #10 tabs 01/24/21 ibuprofen 600 mg tablet 600 mg PO Q6H PRN pain #20 tabs 01/30/21 cephalexin 500 mg capsule 500 mg PO Q6H 10 days #40 caps 04/13/21 hydrocortisone 2.5 % topical 1 appl topical QD-TID PRN skin 04/13/21 ointment irritation #454 grams prednisone 20 mg tablet 40 mg PO DAILY rash 5 days #10 tabs 04/13/21 cetirizine 10 mg capsule 10 mg PO DAILY PRN allergy 11/20/21 symptoms #14 caps prednisone 10 mg tablet 10 mg PO DAILY 12 days #12 tabs 04/28/21 acetaminophen 500 mg tablet 1,000 mg PO QID PRN pain #30 tabs 05/28/22 ibuprofen 600 mg tablet 600 mg PO Q6H PRN pain #20 tabs 05/28/22 hydrocortisone 2.5 % topical cream 1 appl topical BID 5 days #20 grams 09/27/22 prednisone 20 mg tablet 40 mg PO DAILY #10 tabs 09/27/22 Allergies Allergy/AdvReac Type Severity Reaction Status Date / Time doxycycline [DOXYCYCLINE] Allergy Unknown HIVES Verified 12/08/20 15:56 latex [LATEX] Allergy Unknown RASH Verified 12/08/20 15:56 Penicillins [PENICILLINS] Allergy Unknown SWELLING Verified 12/08/20 15:56 DETERGENT Allergy Intermediate RASH Uncoded 02/24/20 15:19 Review of Systems Constitutional: Constitutional: Reports as per HPI, Denies chills, Denies fatigue and Denies fever(s) Respiratory: Respiratory: Denies cough Integumentary/Breasts: Skin/Breast: Reports dry skin and Reports rash Neurologic: Denies focal weakness Endocrine: Endocrine: Denies fatigue [facility] Past Medical History Medical History Acute eczema Social History Social History Substance Use Type: Marijuana Physical Exam ED Vital Signs: Vital Signs - 24 hr 09/27/22 11:53 Temperature 98.0 F Pulse Rate 99 Respiratory Rate 18 Blood Pressure 129/91 H Pulse Oximetry 99 Oxygen Delivery Method Room Air BMI result Body Mass Index 33.6 Const General: healthy appearing, comfortable, no acute distress, alert and awake Nutritional Appearance: well nourished Orientation/consciousness: patient oriented x3 HENMT Head: Yes normocephalic and Yes atraumatic Throat: Yes posterior oropharynx normal Eyes Eyelids: Yes eyelids normal Conjunctivae: conjunctivae normal Sclerae: sclerae normal Corneas: corneas normal Pupils: Equal, round and reactive pupils present EOM: EOMs intact bilaterally Neck Neck: Yes full ROM Resp Effort & Inspection: normal respiratory effort, able to speak in complete sentences, no audible wheezes and not labored Auscultation: clear to auscultation bilaterally Cardio Rate: regular rate Rhythm: regular rhythm GI Inspection: No distended Palpation (GI): Soft to palpation, not firm, nontender, no guarding and not rigid Auscultation: normoactive bowel sounds Skin Other: Patient has a mild erythematous rash to the dorsal surface of both hands. No open lesions. The rash is not circumferential. It does not extend beyond the wrist proximally Neuro General: patient oriented x3 Cranial nerves: Yes CN's II-XII intact bilaterally, Yes Equal, round and reactive pupils present and Yes Bilaterally intact EOM present Cognition (Neuro): normal cognition Extrem Other: Moving all extremities well without any obvious deformities Medical Decision Making Medical Decision Making MDM Narrative: 42-year-old male with history of eczema presents with a rash consistent with eczema. He has failed [id number] treatment we will prescribe hydrocortisone 2.5% and a short course of prednisone. Differential Diagnosis Eczema Dermatitis Contact dermatitis Acute rash Discharge Plan Discharge Clinical Impression: Eczema Patient Disposition: Home, Self-Care Instructions: Dermatitis (ED) Additional Instructions: Take prednisone 40 mg daily for the next 5 days Use hydrocortisone cream twice daily for the next 5 days Prescriptions: New prednisone 20 mg tablet 40 mg PO DAILY Qty: 10 0RF hydrocortisone 2.5 % cream 1 appl topical BID 5 Days Qty: 20 0RF No Action ibuprofen 800 mg tablet 800 mg PO Q8H PRN (Reason: pain) Qty: 14 0RF acetaminophen [Tylenol Extra Strength] 500 mg tablet 1,000 mg PO QID PRN (Reason: fever or pain) Qty: 14 0RF hydrocortisone 2.5 % ointment 1 appl topical QD-TID PRN (Reason: skin irritation) Qty: 454 0RF oxycodone 5 mg tablet 5 mg PO BID PRN (Reason: pain) Qty: 10 0RF ibuprofen 600 mg tablet 600 mg PO Q6H PRN (Reason: pain) Qty: 20 0RF sulfamethoxazole-trimethoprim [Bactrim DS] 800-160 mg tablet 1 tab PO Q12H Qty: 14 0RF mupirocin 2 % ointment 1 appl topical BID Qty: 15 0RF triamcinolone acetonide 0.025 % ointment 1 appl topical BID Qty: 80 0RF hydrocortisone acetate 0.5 % cream 1 appl topical BID PRN (Reason: eczema) Qty: 28.4 0RF Rx Instructions: Please place on at night with a glove until the morning. prednisone 20 mg tablet 60 mg PO DAILY 7 Days Qty: 21 0RF ibuprofen 400 mg tablet 400 mg PO Q8H PRN (Reason: back p) Qty: 30 0RF acetaminophen 500 mg tablet 1,000 mg PO QID PRN (Reason: pain) Qty: 30 0RF ibuprofen 600 mg tablet 600 mg PO Q6H PRN (Reason: pain) Qty: 20 0RF prednisone 20 mg tablet 40 mg PO DAILY 5 Days Qty: 10 0RF cephalexin 500 mg capsule 500 mg PO Q6H 10 Days Qty: 40 0RF hydrocortisone 2.5 % ointment 1 appl topical QD-TID PRN (Reason: skin irritation) Qty: 454 0RF prednisone 10 mg tablet 10 mg PO DAILY 12 Days Qty: 12 0RF Rx Instructions: Prednisone taper dispense QS, 12 day course 60 mg by mouth once a day for 3 days Followed by 40 mg by mouth once a day for 3 days Followed by 20 mg by mouth once a day for 3 days Followed by 10 mg by mouth once a day for 3 days cetirizine 10 mg capsule 10 mg PO DAILY PRN (Reason: allergy symptoms) Qty: 14 0RF Interventions: ED Discharge Assessment Last Done: 09/27/22 11:56
== END 2022-09-27 11:59 | disposition home or self-care (01) ==
LOC: HO.ED 11:59
PROVIDERS: Emergency Provider Emergency Medicine Emergency Medical Services
DX: L30.9 Dermatitis, unspecified (principal); R21 Rash and other nonspecific skin eruption; Z79.899 Other long term (current) drug therapy
CPT/HCPCS: 99282; 99283

== ENCOUNTER → 2024-04-19 10:41 | Outpatient (BNV) | payer SELFPAY | PROVIDERS: Emergency Provider Emergency Medicine; Visit Provider Internal Medicine Cardiovascular Disease | DX: R07.9 Chest pain, unspecified (principal) | CPT/HCPCS: 93010 ==

== ENCOUNTER 2024-04-19 10:44 | Emergency (ER) | payer MEDICAID, SELFPAY ==
--- NOTE | 2024-04-19 | ECG_ITS ---
Test Reason : cp Blood Pressure : / mmHG Vent. Rate : 100 BPM Atrial Rate : 100 BPM P-R Int : 152 ms QRS Dur : 086 ms QT Int : 334 ms P-R-T Axes : 065 011 037 degrees QTc Int : 430 ms Normal sinus rhythm Normal ECG No previous ECGs available Referred By: Generic ED Physician Electronically Signed By:Chapin Nolan
--- NOTE | ~2024-04-19 | XR_ITS ---
EXAMINATION: XR CHEST CLINICAL INFORMATION: Sternal chest pain COMPARISON: None available. TECHNIQUE: 2 views of the chest were obtained. FINDINGS: No significant abnormality is noted involving the heart, lungs, mediastinum, bony thorax or soft tissues. XR/XR chest 2V IMPRESSION: Unremarkable examination. Electronically signed by: Reid Ornelas MD 04/19/2024 05:15 PM [facility] [place]
[2024-04-19 10:55] VITALS: BP 129/89; PULSE 95; RESP 18; TEMP 37; O2SAT 98; BMI 33.0
[2024-04-19 11:38] LABS: MANUAL DIFF FLAG NO
[2024-04-19 11:41] LABS: Basophils Percent Auto 0.4 % (0-2); Eosinophils Absolute Auto 0.1 X10*3/uL (0.0-0.4); Eosinophils Percent Auto 1.6 % (0-4); Hemoglobin 17.1 g/dl (14.0-18.0); Imm Gran Abs Auto 0.01 X10*3/uL (0.00-0.03); Imm Gran Pct Auto 0.1 % (0.0-0.4); Lymphocytes Absolute Auto 2.2 X10*3/uL (1.2-4.9); Lymphocytes Percent Auto 30.2 % (20-40); Mean Corpuscular HGB Conc 35.6 g/dl (31.0-36.0); Mean Corpuscular Hemoglobin 31.5 pg (27.0-33.0); Mean Corpuscular Volume 88.6 fL (80.0-98.0); Mean Platelet Volume 9.4 fL (9.4-12.4); Monocytes Absolute Auto 0.7 X10*3/uL (0.1-1.2); Monocytes Percent Auto 9.1 % (2-11); Neutrophils Absolute Auto 4.3 x10*3/uL (2.0-8.3); Neutrophils Percent Auto 58.6 % (45-73); Platelet Count 213 X10*3/uL (160-400); Red Blood Count 5.42 X10*6/uL (4.60-5.80); Red Cell Distribution Width 13.6 % (11.0-16.0); White Blood Count 7.3 X10*3/uL (4.8-10.8)
[2024-04-19 11:58] LABS: Alanine Aminotransferase 40 U/L (0-40); Albumin Level 4.3 g/dL (3.5-5.0); Alkaline Phosphatase 69 U/L (39-117); Anion Gap 14 (12-20); Aspartate Amino Transferase 29 U/L (5-37); Bilirubin Total 0.6 mg/dL (0.0-1.0); Blood Urea Nitrogen 10 mg/dL (9-16); Calcium 9.7 mg/dL (8.4-10.2); Carbon Dioxide 19 mmol/L (22-29); Chloride 108 mmol/L (96-108); Creatinine Clr Calc Pharmacy 153.5; Estimated Glomerular Filt Rate > 60; Glucose Random 108 mg/dL (60-115); Magnesium 2.2 mg/dL (1.6-2.6); Potassium 4.2 mmol/L (3.3-5.1); Sodium 137 mmol/L (135-145); Total Protein 7.5 g/dL (6.5-8.0)
[2024-04-19 12:05] LABS: Troponin-I High Sensitivity < 2.7 ng/L (<3.5-35.0)
--- NOTE | 2024-04-19 14:06 | ED_ITS ---
HPI - Chest Pain General Chief Complaint: Chest Pain Stated Complaint: CP Time Seen by Provider: 04/19/24 14:06 Source: patient Mode of arrival: ambulatory Limitations: no limitations History of Present Illness ED Provider: JASMIN TORRES PA-C HPI narrative: 44-year-old male with no significant past medical history presents to the ED today for evaluation of chest pain x1 week. Patient reports waking up every morning feeling fine. Throughout the day he will begin to develop central chest tightness which worsens when he lies down for bed at night. This discomfort began to radiate into his left upper extremity yesterday and continued into today, prompting him to come in to the ED for evaluation. No hx of similar. Has not trialed any OTC medications for the discomfort at home. Endorses smoking both tobacco and THC. Admits to increased life stressors and anxiety recently surrounding employment. He states he was let go from his job 3 months ago. Has had difficulty finding employment. As a result of being let go, he reports his lifestyle is more sedentary. Does not do much throughout the day. Denies trauma/ injury to the chest. He denies hx of anxiety. Has never taken any medications for anxiety. Denies recent travel or long car rides. Denies known sick contacts. Denies fever, chills, headache, dizziness, vision changes, cough, hemoptysis, shortness of breath, palpitations, nausea or vomiting. Denies personal or familial cardiac hx/ MIs. No hx of VTE. Related Data Previous Rx's ?Medication ?Instructions ?Recorded mupirocin 2 % topical ointment 1 appl topical BID #15 grams 07/22/20 sulfamethoxazole 800 1 tab PO Q12H #14 tabs 07/22/20 mg-trimethoprim 160 mg tablet (Bactrim DS) triamcinolone acetonide 0.025 % 1 appl topical BID #80 grams 11/18/20 topical ointment hydrocortisone acetate 0.5 % 1 appl topical BID PRN eczema 01/07/21 topical cream #28.4 grams ibuprofen 400 mg tablet 400 mg PO Q8H PRN back p #30 tabs 01/07/21 prednisone 20 mg tablet 60 mg (3 x 20 mg) PO DAILY 01/07/21 dermatitis 7 days #21 tabs acetaminophen 500 mg tablet 1,000 mg (2 x 500 mg) PO QID PRN 01/24/21 (Tylenol Extra Strength) fever or pain #14 tabs hydrocortisone 2.5 % topical 1 appl topical QD-TID PRN skin 01/24/21 ointment irritation #454 grams ibuprofen 800 mg tablet 800 mg PO Q8H PRN pain #14 tabs 01/24/21 oxycodone 5 mg tablet 5 mg PO BID PRN pain #10 tabs 01/24/21 ibuprofen 600 mg tablet 600 mg PO Q6H PRN pain #20 tabs 01/30/21 cephalexin 500 mg capsule 500 mg PO Q6H 10 days #40 caps 04/13/21 hydrocortisone 2.5 % topical 1 appl topical QD-TID PRN skin 04/13/21 ointment irritation #454 grams prednisone 20 mg tablet 40 mg (2 x 20 mg) PO DAILY rash 5 04/13/21 days #10 tabs cetirizine 10 mg capsule 10 mg PO DAILY PRN allergy 04/28/21 symptoms #14 caps prednisone 10 mg tablet 10 mg PO DAILY 12 days #12 tabs 04/28/21 acetaminophen 500 mg tablet 1,000 mg (2 x 500 mg) PO QID PRN 05/28/22 pain #30 tabs ibuprofen 600 mg tablet 600 mg PO Q6H PRN pain #20 tabs 05/28/22 hydrocortisone 2.5 % topical cream 1 appl topical BID 5 days #20 grams 09/27/22 prednisone 20 mg tablet 40 mg (2 x 20 mg) PO DAILY #10 tabs 09/27/22 Allergies Allergy/AdvReac Type Severity Reaction Status Date / Time doxycycline [DOXYCYCLINE] Allergy Unknown HIVES Verified 04/19/24 10:58 latex [LATEX] Allergy Unknown RASH Verified 04/19/24 10:58 Penicillins [PENICILLINS] Allergy Unknown SWELLING Verified 04/19/24 10:58 DETERGENT Allergy Intermediate RASH Uncoded 04/19/24 10:58 Review of Systems 2 Review of Systems: Constitutional: No fever, chills, fatigue, night sweats, weight changes ENT/Mouth: No ear pain, hearing loss, nasal congestion, sinus pain, rhinorrhea, sore throat Eyes: No eye pain, swelling, redness, vision changes, discharge Cardio: No palpitations, CANELA, orthopnea, peripheral edema, +chest tightness Pulm: No SOB, cough, sputum, wheezing, dyspnea, hemoptysis GI: No nausea, vomiting, hematemesis, abdominal pain, diarrhea, constipation, hematochezia, melena : No irregular bleeding, dysuria, frequency, urgency, hesitancy, hematuria, flank pain, urinary flow changes, urinary incontinence or retention MSK: No back pain, neck pain, joint pain, myalgias Skin: No lesions, rashes Neuro: No weakness, numbness, paresthesias, LOC, dizziness, headache Psych: No anxiety/panic, depression, SI/HI, AH/VH All other systems reviewed and are negative. [facility] Past Medical History Attestation statement: The following information was validated with the patient. Source: old records reviewed and nursing notes reviewed Medical History Acute eczema Social History Social History Substance Use Type: Marijuana Advance Directives: No Advance Directives Information Provided: Yes Do you have a plan to hurt others: No Plan Physical Exam 2 Vital Signs: Vital Signs: Last Vital Signs Temp 98.6 F 04/19/24 10:55 Pulse 95 04/19/24 10:55 Resp 18 04/19/24 10:55 BP 129/89 04/19/24 10:55 Pulse Ox 98 04/19/24 10:55 O2 Del Method Room Air 04/19/24 10:55 BMI result Body Mass Index 33.0 vital signs stable, afebrile, not hypoxic, not tachycardic General: Well appearing, in no acute distress. Skin: Warm, dry, intact. No rashes or lesions. Head: Normocephalic, atraumatic. EENT: Hearing is intact b/l. Conjunctiva clear. PERRLA. EOM intact. Moist mucous membranes.? Neck: Supple without LAD Cardiac: Chest wall symmetric. RRR. No JVD. No reproducible chest wall tenderness. Lungs: Normal respiratory effort without accessory muscle use. CTA bilaterally. No rales, rhonchi, or wheezes.? Abdomen: Soft, non-tender, non-distended Back: No midline spinous or paraspinal tenderness. No step off deformity. Ext: Upper and lower extremities atraumatic, without tenderness, deformity, swelling or erythema. Full ROM throughout. no calf tenderness b/l. Neuro: AOx3. Normal speech. Psych: Appropriate mood and affect. Responds appropriately to questions. Course Course Course Narrative: 1550 -- CBC without leukocytosis or left shift. No anemia. H&H stable. Chemistry without acute electrolyte abnormality requiring intervention. No EVERARDO. Troponin undetectable. EKG showing normal sinus rhythm without evidence of acute ischemia. CXR pending. Reevaluation(s) Reevaluation #1: XR/XR chest 2V IMPRESSION: Unremarkable examination. This time feel the patient is stable for discharge home, findings were discussed with patient. All questions answered Time: 17:52 Medications Administered Discontinued Medications Generic Name Dose Route Start Last Admin Trade Name Freq PRN Reason Stop Dose Admin Ketorolac Tromethamine 30 mg 04/19/24 15:41 04/19/24 16:38 Ketorolac Tromethamine 30 Mg/Ml Vial IM 04/19/24 15:42 30 mg ONCE ONE Administration Medical Decision Making Medical Decision Making [facility] Narrative: 44-year-old male with no significant past medical history presents to the ED today for evaluation of chest pain x1 week. Vital signs are stable. Not hypoxic. Not tachycardic. Afebrile. He is nontoxic-appearing and in NAD. Sitting comfortably on exam bed. RRR. No JVD or peripheral edema. Lungs are CTA bilaterally. There is no sign of respiratory distress. This patient presents with chest pain, with symptoms suggestive of noncardiac chest pain.? History without high risk features (no exertional component, not relieved with rest).? Minimal CAD risk factors (including age. Exam without evidence of volume overload. EKG without signs of active ischemia. Given the timing of pain to ED presentation, plan to send single troponin to evaluate for NSTEMI. Differential diagnosis also includes anemia, electrolyte abnormality, pneumonia, PE, anxiety Presentation not consistent with pneumothorax, thoracic aortic dissection, cardiac effusion or tamponade. Plan: labs, troponin, EKG, CXR, pain control, and re-evaluation. Differential Diagnosis Differential Diagnoses: The differential diagnosis associated with the presentation includes As above Admission/Observation Consideration of admission/observation: Escalation of care including admission/observation considered Admission considered on presentation Lab Data [facility] Lab Attestation statement: I reviewed the patient's lab results. As above 04/19/24 11:28 04/19/24 11:28 Labs: Lab Results 11/11/24 11/11/24 Range/Units 11:28 15:03 WBC 7.3 (4.8-10.8) X10*3/uL RBC 5.42 (4.60-5.80) X10*6/uL Hgb 17.1 (14.0-18.0) g/dl Hct 48.0 (42.0-52.0) % MCV 88.6 (80.0-98.0) fL MCH 31.5 (27.0-33.0) pg MCHC 35.6 (31.0-36.0) g/dl RDW 13.6 (11.0-16.0) % Plt Count 213 (160-400) X10*3/uL MPV 9.4 (9.4-12.4) fL Immature Gran % (Auto) 0.1 (0.0-0.4) % Neut % (Auto) 58.6 (45-73) % Lymph % (Auto) 30.2 (20-40) % [place] % (Auto) 9.1 (2-11) % Eos % (Auto) 1.6 (0-4) % Baso % (Auto) 0.4 (0-2) % Lymph # (Auto) 2.2 (1.2-4.9) X10*3/uL [place] # (Auto) 0.7 (0.1-1.2) X10*3/uL Eos # (Auto) 0.1 (0.0-0.4) X10*3/uL Baso # (Auto) 0.0 (0.0-0.2) X10*3/uL Abs Immat Gran (auto) 0.01 (0.00-0.03) X10*3/uL Absolute Neuts (auto) 4.3 (2.0-8.3) x10*3/uL Absolute Nucleated RBC 0.000 (0.0-0.012) X10*3/uL Nucleated RBC % (auto) 0.0 (0.0-0.2) /100WBC D-Dimer High Sensitivty < 150 NG/ML Sodium 137 (135-145) mmol/L Potassium 4.2 (3.3-5.1) mmol/L Chloride 108 (96-108) mmol/L Carbon Dioxide 19 L (22-29) mmol/L Anion Gap 14 (12-20) BUN 10 (9-16) mg/dL Creatinine 0.81 (0.5-1.4) mg/dL Estim Creat Clear Calc 153.5 Estimated GFR > 60 Random Glucose 108 (60-115) mg/dL Calcium 9.7 (8.4-10.2) mg/dL Magnesium 2.2 (1.6-2.6) mg/dL Total Bilirubin 0.6 (0.0-1.0) mg/dL AST 29 (5-37) U/L ALT 40 (0-40) U/L Alkaline Phosphatase 69 (39-117) U/L Troponin I High Sens < 2.7 (<3.5-35.0) ng/L Total Protein 7.5 (6.5-8.0) g/dL Albumin 4.3 (3.5-5.0) g/dL Independent Interpretation I performed an independent interpretation of an: EKG and Plain X-Ray Interpretation: EKG showing normal sinus rhythm with a rate of 100 beats per minute, QT 334, QTC 430, no acute ischemic changes or ST elevations. CXR without infiltrate or consolidation. Radiology Impression Discussion of test interpretation with radiology: I have reviewed the radiologist's reading. Radiologist Impression: EXAMINATION: XR CHEST CLINICAL INFORMATION: Sternal chest pain COMPARISON: None available. TECHNIQUE: 2 views of the chest were obtained. FINDINGS: No significant abnormality is noted involving the heart, lungs, mediastinum, bony thorax or soft tissues. XR/XR chest 2V IMPRESSION: Unremarkable examination. Electronically signed by: Reid Ornelas MD 04/19/2024 05:15 PM [facility] External Record Review External record reviewed: Inpatient record Prescription Management I considered prescription management with: Pain Medication Social Determinants Patient?s care significantly limited by Social Determinants of Health including: Other Social Determinant of Health Critical Care Time Critical Care Time Critical Care Time: No Discharge Plan Discharge Clinical Impression: Atypical chest pain Patient Disposition: Home, Self-Care Instructions: Chest Pain (ED), Noncardiac Chest Pain (ED) Additional Instructions: You were evaluated in the Emergency Department today for chest pain. 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 If you do not have one, a referral has been provided. Please call them to make an appointment, they will not call you. Return to the Emergency Department if you experience worsening or uncontrolled chest pain, shortness of breath, light headedness, feeling faint, nausea, vomiting, or any other concerning symptoms. Prescriptions: No Action ibuprofen 800 mg tablet 800 mg PO Q8H PRN (Reason: pain) Qty: 14 0RF acetaminophen [Tylenol Extra Strength] 500 mg tablet 1,000 mg PO QID PRN (Reason: fever or pain) Qty: 14 0RF hydrocortisone 2.5 % ointment 1 appl topical QD-TID PRN (Reason: skin irritation) Qty: 454 0RF oxycodone 5 mg tablet 5 mg PO BID PRN (Reason: pain) Qty: 10 0RF ibuprofen 600 mg tablet 600 mg PO Q6H PRN (Reason: pain) Qty: 20 0RF sulfamethoxazole-trimethoprim [Bactrim DS] 800-160 mg tablet 1 tab PO Q12H Qty: 14 0RF mupirocin 2 % ointment 1 appl topical BID Qty: 15 0RF triamcinolone acetonide 0.025 % ointment 1 appl topical BID Qty: 80 0RF hydrocortisone acetate 0.5 % cream 1 appl topical BID PRN (Reason: eczema) Qty: 28.4 0RF Rx Instructions: Please place on at night with a glove until the morning. prednisone 20 mg tablet 60 mg PO DAILY 7 Days Qty: 21 0RF ibuprofen 400 mg tablet 400 mg PO Q8H PRN (Reason: back p) Qty: 30 0RF acetaminophen 500 mg tablet 1,000 mg PO QID PRN (Reason: pain) Qty: 30 0RF ibuprofen 600 mg tablet 600 mg PO Q6H PRN (Reason: pain) Qty: 20 0RF prednisone 20 mg tablet 40 mg PO DAILY 5 Days Qty: 10 0RF cephalexin 500 mg capsule 500 mg PO Q6H 10 Days Qty: 40 0RF hydrocortisone 2.5 % ointment 1 appl topical QD-TID PRN (Reason: skin irritation) Qty: 454 0RF prednisone 10 mg tablet 10 mg PO DAILY 12 Days Qty: 12 0RF Rx Instructions: Prednisone taper dispense QS, 12 day course 60 mg by mouth once a day for 3 days Followed by 40 mg by mouth once a day for 3 days Followed by 20 mg by mouth once a day for 3 days Followed by 10 mg by mouth once a day for 3 days cetirizine 10 mg capsule 10 mg PO DAILY PRN (Reason: allergy symptoms) Qty: 14 0RF prednisone 20 mg tablet 40 mg PO DAILY Qty: 10 0RF hydrocortisone 2.5 % cream 1 appl topical BID 5 Days Qty: 20 0RF Referrals: [facility] [place] [facility] [Provider Group] Print Language: British
[2024-04-19 15:23] LABS: D Dimer High Sensitivity < 150 NG/ML
[2024-04-19] MEDS: Ketorolac Tromethamine 30 MG/ML VIAL IM (16:38)
[2024-04-19 18:09] VITALS: BP 0/0; PULSE 0; RESP 0; TEMP -17.7; TEMP 0; O2SAT 0
--- NOTE | 2024-04-19 18:09 | PC.NURSE ---
Pt. left without paperwork
== END 2024-04-19 18:11 | disposition home or self-care (01) ==
PROVIDERS: Physician Assistant Medical; Emergency Provider Emergency Medicine
DX: R07.89 Other chest pain (principal); F17.210 Nicotine dependence, cigarettes, uncomplicated; F12.90 Cannabis use, unspecified, uncomplicated; Z79.899 Other long term (current) drug therapy
CPT/HCPCS: 36415; 71046; 80053; 83735; 84484; 85025; 85379; 93005; 96372; 99283; 99284; J1885

== ENCOUNTER 2024-09-18 12:39 | Emergency (ER) | payer MEDICAID, SELFPAY ==
[2024-09-18 12:59] VITALS: BP 135/90; PULSE 98; RESP 16; TEMP 36.6; O2SAT 98; BMI 33.0
--- NOTE | 2024-09-18 13:04 | ED_ITS ---
HPI - General Adult General Chief complaint: Skin/Abscess/Foreign Body Stated complaint: hand dermetitis Time Seen by Provider: 09/18/24 13:03 Source: patient, RN notes reviewed and old records reviewed Mode of arrival: ambulatory Limitations: no limitations History of Present Illness ED Provider: Piotr HPI narrative: Patient is a 44-year-old male presenting to the emergency department with complaint of pruritic rash to bilateral hands, small area of neck. Reports similar symptoms in the past, states he has a known allergy to any detergents with Oxy clean in them. Reports that he has a shared washer and kier drier in his apartment building and someone in the building must be using a detergent with Oxy clean. He is specifically requesting a course of prednisone. Denies any swelling to lips, tongue, shortness of breath or difficulty breathing. MD complaint: rash Onset (ago): day(s) Related Data Previous Rx's ?Medication ?Instructions ?Recorded mupirocin 2 % topical ointment 1 appl topical BID #15 grams 07/22/20 sulfamethoxazole 800 1 tab PO Q12H #14 tabs 07/22/20 mg-trimethoprim 160 mg tablet (Bactrim DS) triamcinolone acetonide 0.025 % 1 appl topical BID #80 grams 11/18/20 topical ointment hydrocortisone acetate 0.5 % 1 appl topical BID PRN eczema 01/07/21 topical cream #28.4 grams ibuprofen 400 mg tablet 400 mg PO Q8H PRN back p #30 tabs 01/07/21 prednisone 20 mg tablet 60 mg (3 x 20 mg) PO DAILY 01/07/21 dermatitis 7 days #21 tabs acetaminophen 500 mg tablet 1,000 mg (2 x 500 mg) PO QID PRN 01/24/21 (Tylenol Extra Strength) fever or pain #14 tabs hydrocortisone 2.5 % topical 1 appl topical QD-TID PRN skin 01/24/21 ointment irritation #454 grams ibuprofen 800 mg tablet 800 mg PO Q8H PRN pain #14 tabs 01/24/21 oxycodone 5 mg tablet 5 mg PO BID PRN pain #10 tabs 01/24/21 ibuprofen 600 mg tablet 600 mg PO Q6H PRN pain #20 tabs 01/30/21 cephalexin 500 mg capsule 500 mg PO Q6H 10 days #40 caps 04/13/21 hydrocortisone 2.5 % topical 1 appl topical QD-TID PRN skin 04/13/21 ointment irritation #454 grams prednisone 20 mg tablet 40 mg (2 x 20 mg) PO DAILY rash 5 04/13/21 days #10 tabs cetirizine 10 mg capsule 10 mg PO DAILY PRN allergy 04/28/21 symptoms #14 caps prednisone 10 mg tablet 10 mg PO DAILY 12 days #12 tabs 04/28/21 acetaminophen 500 mg tablet 1,000 mg (2 x 500 mg) PO QID PRN 05/28/22 pain #30 tabs ibuprofen 600 mg tablet 600 mg PO Q6H PRN pain #20 tabs 05/28/22 hydrocortisone 2.5 % topical cream 1 appl topical BID 5 days #20 grams 09/27/22 prednisone 20 mg tablet 40 mg (2 x 20 mg) PO DAILY #10 tabs 09/27/22 prednisone 10 mg tablet See Rx Instructions .Route 09/18/24 .COMPLEX #15 tabs Allergies Allergy/AdvReac Type Severity Reaction Status Date / Time doxycycline [DOXYCYCLINE] Allergy Unknown HIVES Verified 09/18/24 12:59 latex [LATEX] Allergy Unknown RASH Verified 09/18/24 12:59 Penicillins [PENICILLINS] Allergy Unknown SWELLING Verified 09/18/24 12:59 DETERGENT Allergy Intermediate RASH Uncoded 04/19/24 10:58 Review of Systems Review of Systems: As per HPI Yes all other systems are reviewed and are negative Constitutional: Constitutional: Reports as per HPI [facility] Past Medical History Medical History Acute eczema Social History Social History Substance Use Type: Marijuana Advance Directives: No Advance Directives Information Provided: No Do you have a plan to hurt others: No Plan Physical Exam ED Vital Signs: Vital Signs - 24 hr 09/18/24 12:59 Temperature 97.9 F Pulse Rate 98 Respiratory Rate 16 Blood Pressure 135/90 H Pulse Oximetry 98 Oxygen Delivery Method Room Air BMI result Body Mass Index 33.0 Vital signs have been reviewed and appear to be correct. Blood pressure normal. Heart rate normal. Respiratory rate normal. Temperature normal. Oxygen saturation normal. Const General: cooperative, healthy appearing and no acute distress Orientation/consciousness: oriented to person, oriented to place, oriented to time and patient oriented x3 Limitations: no limitations HENMT Head: Yes normocephalic and Yes atraumatic Ears: external ears normal General nose exam: Normal external nose present Face and sinus: Yes face symmetric Mouth: oropharynx normal and moist mucous membranes Throat: Yes uvula midline Eyes Pupils: Equal, round and reactive pupils present Neck Neck: Yes normal visual inspection and Yes supple Resp Effort & Inspection: normal respiratory effort and able to speak in complete sentences Auscultation: clear to auscultation bilaterally Cardio Rate: regular rate Rhythm: regular rhythm Heart sounds: S1 normal heart sound present and S2 normal heart sound present GI Palpation (GI): Soft to palpation and nontender Auscultation: normoactive bowel sounds General: Yes no CVA tenderness Back/Spine/Pelvis Back: no CVA tenderness Skin Other: erythema, excoriation to bilateral hands General skin exam: elasticity normal and turgor normal Neuro General: oriented to person, oriented to place, oriented to time, patient oriented x3, moves all extremities, no focal motor deficits and CN's II-XI intact bilaterally Cranial nerves: Yes Equal, round and reactive pupils present Cognition (Neuro): normal cognition Extrem General: Yes full ROM, Yes no pedal edema and Yes no calf tenderness Psych Mental Status: mental status grossly normal Affect: normal affect Thought process: Normal thought process present Medical Decision Making Medical Decision Making [facility] Narrative: Patient is a 44-year-old male presenting to the emergency department with complaint of pruritic rash to bilateral hands, small area of neck. On exam patient is awake, A+Ox3, VS WNL, afebrile, normal neurological exam without focal deficits, physical exam findings as above. Given reported symptoms and physical exam findings, initial differential includes but is not limited to contact dermatitis, atopic dermatitis. Do not suspect TEN/SJS, DRESS, TTP/DIC, necrotizing fasciitis, meningococcemia, SSSS, TSS, anaphylaxis. Will treat with course of prednisone, discussed with patient that he can also use an unscented emollient cream such as Eucerin or Vanicream. Return precautions discussed. Patient verbalized understanding of and agreement with plan. Differential Diagnosis Differential Diagnoses: The differential diagnosis associated with the presentation includes As per [facility] External Record Review External record reviewed: Inpatient record, Office record and Outpatient record Prescription Management I considered prescription management with: Other Discharge Plan Discharge Clinical Impression: Contact dermatitis Patient Disposition: Home, Self-Care Instructions: Contact Dermatitis (DC) Additional Instructions: You were evaluated in the emergency department today for a rash. Your evaluation did not reveal evidence of conditions requiring emergent medical treatment. You are being prescribed a tapering dose of a steroid called prednisone to decrease inflammation. We also recommend that you take a daily antihistamine such as loratadine (Claritin) or cetirizine (Zyrtec). You can also add over the counter famotidine (Pepcid) which is a different type of antihistamine. You can apply a thick unscented lotion to the affected areas such as Eucerine or Vanicream several times daily. Follow up with your primary care provider this week. If your symptoms do not improve, follow up with a learning coordinator. Return to the emergency department if you develop difficulty breathing or shortness of breath, swelling to lips, tongue, fever, rash inside your mouth or to your palms/soles or any other concerning symptoms. Prescriptions: New prednisone 10 mg tablet See Rx Instructions .ROUTE .COMPLEX Qty: 15 0RF Rx Instructions: 50mg (5 tabs) x 1 day, then 40mg (4 tabs) x 1 day, then 30mg (3 tabs) x 1 day, then 20mg (2 tabs) x 1 day, then 10mg (1 tab) x 1 day No Action ibuprofen 800 mg tablet 800 mg PO Q8H PRN (Reason: pain) Qty: 14 0RF acetaminophen [Tylenol Extra Strength] 500 mg tablet 1,000 mg PO QID PRN (Reason: fever or pain) Qty: 14 0RF hydrocortisone 2.5 % ointment 1 appl topical QD-TID PRN (Reason: skin irritation) Qty: 454 0RF oxycodone 5 mg tablet 5 mg PO BID PRN (Reason: pain) Qty: 10 0RF ibuprofen 600 mg tablet 600 mg PO Q6H PRN (Reason: pain) Qty: 20 0RF sulfamethoxazole-trimethoprim [Bactrim DS] 800-160 mg tablet 1 tab PO Q12H Qty: 14 0RF mupirocin 2 % ointment 1 appl topical BID Qty: 15 0RF triamcinolone acetonide 0.025 % ointment 1 appl topical BID Qty: 80 0RF hydrocortisone acetate 0.5 % cream 1 appl topical BID PRN (Reason: eczema) Qty: 28.4 0RF Rx Instructions: Please place on at night with a glove until the morning. prednisone 20 mg tablet 60 mg PO DAILY 7 Days Qty: 21 0RF ibuprofen 400 mg tablet 400 mg PO Q8H PRN (Reason: back p) Qty: 30 0RF acetaminophen 500 mg tablet 1,000 mg PO QID PRN (Reason: pain) Qty: 30 0RF ibuprofen 600 mg tablet 600 mg PO Q6H PRN (Reason: pain) Qty: 20 0RF prednisone 20 mg tablet 40 mg PO DAILY 5 Days Qty: 10 0RF cephalexin 500 mg capsule 500 mg PO Q6H 10 Days Qty: 40 0RF hydrocortisone 2.5 % ointment 1 appl topical QD-TID PRN (Reason: skin irritation) Qty: 454 0RF prednisone 10 mg tablet 10 mg PO DAILY 12 Days Qty: 12 0RF Rx Instructions: Prednisone taper dispense QS, 12 day course 60 mg by mouth once a day for 3 days Followed by 40 mg by mouth once a day for 3 days Followed by 20 mg by mouth once a day for 3 days Followed by 10 mg by mouth once a day for 3 days cetirizine 10 mg capsule 10 mg PO DAILY PRN (Reason: allergy symptoms) Qty: 14 0RF prednisone 20 mg tablet 40 mg PO DAILY Qty: 10 0RF hydrocortisone 2.5 % cream 1 appl topical BID 5 Days Qty: 20 0RF Discharge Date/Time: 09/18/24 13:11 Print Language: Armenian
== END 2024-09-18 13:11 | disposition home or self-care (01) ==
PROVIDERS: Emergency Provider Emergency Medicine
DX: L25.9 Unspecified contact dermatitis, unspecified cause (principal)
CPT/HCPCS: 99281

== ENCOUNTER 2024-10-02 11:34 | Emergency (ER) | payer MEDICAID, SELFPAY ==
--- NOTE | ~2024-10-02 | US_ITS ---
CLINICAL HISTORY: pain and swelling US scrotum with Color and Duplex doppler. Comparison: None Technique: Real time sonographic imaging, including color-flow imaging, was performed by the waste disposal leakage tester. Multiple door to door sales representative static images were saved for review. Findings: Right testicle normal size and echotexture, 5.1 x 2.3 x 3.1 cm. Normal color flow. Normal arterial and venous spectral doppler waveforms. Left testicle normal size and echotexture, 5.3 x 2.1 x 3.3 cm. Normal color flow. Normal arterial and venous spectral doppler waveforms. 3 mm epididymal cysts on the left. Trace physiologic hydroceles Impression: 1. Normal testes 2. Incidental epididymal cyst on the left This document has been electronically signed by: Yaya Angel MD on 10/02/2024 12:44:21
--- NOTE | ~2024-10-02 | US_ITS ---
CLINICAL HISTORY: pain and swelling US scrotum with Color and Duplex doppler. Comparison: None Technique: Real time sonographic imaging, including color-flow imaging, was performed by the stamp classifier. Multiple education courses sales representative static images were saved for review. Findings: Right testicle normal size and echotexture, 5.1 x 2.3 x 3.1 cm. Normal color flow. Normal arterial and venous spectral doppler waveforms. Left testicle normal size and echotexture, 5.3 x 2.1 x 3.3 cm. Normal color flow. Normal arterial and venous spectral doppler waveforms. 3 mm epididymal cysts on the left. Trace physiologic hydroceles Impression: 1. Normal testes 2. Incidental epididymal cyst on the left This document has been electronically signed by: Yaya Angel MD on 10/02/2024 12:44:21
[2024-10-02 11:37] VITALS: BP 137/99; PULSE 107; RESP 16; TEMP 36.7; O2SAT 98; BMI 32.7
--- NOTE | 2024-10-02 11:38 | ED.GENADULT ---
HPI - General Adult General Chief complaint: Skin/Abscess/Foreign Body Stated complaint: allergic reaction to ?? Time Seen by Provider: 10/02/24 12:22 Source: patient Mode of arrival: ambulatory Limitations: no limitations History of Present Illness ED Provider: DR. Bullock HPI narrative: 44-year-old male came in for evaluation of itching and rash to the inner aspect of both thighs and testicle, started since yesterday, been having also testicular swelling, patient sexually not active for the past 3 months, last sexual intercourse was unprotected 3 months ago. No discharge, no fever, chills. No history of diabetes or immunocompromise disorder. Patient also complaining of eczema flare up in both hands Related Data Previous Rx's ?Medication ?Instructions ?Recorded mupirocin 2 % topical ointment 1 appl topical BID #15 grams 07/22/20 sulfamethoxazole 800 1 tab PO Q12H #14 tabs 07/22/20 mg-trimethoprim 160 mg tablet (Bactrim DS) triamcinolone acetonide 0.025 % 1 appl topical BID #80 grams 11/18/20 topical ointment hydrocortisone acetate 0.5 % 1 appl topical BID PRN eczema 01/07/21 topical cream #28.4 grams ibuprofen 400 mg tablet 400 mg PO Q8H PRN back p #30 tabs 01/07/21 prednisone 20 mg tablet 60 mg (3 x 20 mg) PO DAILY 01/07/21 dermatitis 7 days #21 tabs acetaminophen 500 mg tablet 1,000 mg (2 x 500 mg) PO QID PRN 01/24/21 (Tylenol Extra Strength) fever or pain #14 tabs hydrocortisone 2.5 % topical 1 appl topical QD-TID PRN skin 01/24/21 ointment irritation #454 grams ibuprofen 800 mg tablet 800 mg PO Q8H PRN pain #14 tabs 01/24/21 oxycodone 5 mg tablet 5 mg PO BID PRN pain #10 tabs 01/24/21 ibuprofen 600 mg tablet 600 mg PO Q6H PRN pain #20 tabs 01/30/21 cephalexin 500 mg capsule 500 mg PO Q6H 10 days #40 caps 04/13/21 hydrocortisone 2.5 % topical 1 appl topical QD-TID PRN skin 04/13/21 ointment irritation #454 grams prednisone 20 mg tablet 40 mg (2 x 20 mg) PO DAILY rash 5 04/13/21 days #10 tabs cetirizine 10 mg capsule 10 mg PO DAILY PRN allergy 04/28/21 symptoms #14 caps prednisone 10 mg tablet 10 mg PO DAILY 12 days #12 tabs 04/28/21 acetaminophen 500 mg tablet 1,000 mg (2 x 500 mg) PO QID PRN 05/28/22 pain #30 tabs ibuprofen 600 mg tablet 600 mg PO Q6H PRN pain #20 tabs 05/28/22 hydrocortisone 2.5 % topical cream 1 appl topical BID 5 days #20 grams 09/27/22 prednisone 20 mg tablet 40 mg (2 x 20 mg) PO DAILY #10 tabs 09/27/22 prednisone 10 mg tablet See Rx Instructions .Route 09/18/24 .COMPLEX #15 tabs nystatin 100,000 unit/gram topical 1 appl topical BID #30 grams 10/02/24 cream prednisone 20 mg tablet 20 mg PO BID #10 tabs 10/02/24 Allergies Allergy/AdvReac Type Severity Reaction Status Date / Time doxycycline [DOXYCYCLINE] Allergy Unknown HIVES Verified 10/02/24 11:39 latex [LATEX] Allergy Unknown RASH Verified 10/02/24 11:39 Penicillins [PENICILLINS] Allergy Unknown SWELLING Verified 10/02/24 11:39 DETERGENT Allergy Intermediate RASH Uncoded 10/02/24 11:39 Review of Systems Review of Systems: All other systems are reviewed and are negative Constitutional: Reports as per HPI and Reports no additional constitutional complaints Eyes: Reports as per HPI and Reports no additional eye complaints Reports system reviewed and no additional complaints, except as documented Cardiovascular: Reports as per HPI and Reports no additional cardiovascular complaints Respiratory: Reports as per HPI and Reports no additional respiratory complaints Gastrointestinal: Reports as per HPI and Reports no additional gastrointestinal complaints Genitourinary: Reports no additional female genitourinary complaints Musculoskeletal: Reports no additional musculoskeletal complaints Skin/Breast: Reports system reviewed and no additional complaints, except as docu Psychiatric: Reports no additional psychiatric complaints Endocrine: Reports no additional endocrine complaints Hematologic/Lymphatic: Reports no additional hematologic/lymphatic complaints Allergic/Immunologic: Reports no additional allergic/immunologic complaints Reports system reviewed and no additional complaints, except as documented and Reports Abnormal speech present [facility] Past Medical History Medical History Acute eczema Social History Social History Substance Use Type: Marijuana Advance Directives: No Advance Directives Information Provided: No Physical Exam ED Vital Signs: Vital Signs - 24 hr 10/02/24 11:37 10/02/24 12:00 10/02/24 14:00 Temperature 98.0 F 97.5 F Pulse Rate 107 H 71 60 Respiratory Rate 16 16 16 Blood Pressure 137/99 H 118/83 111/71 Pulse Oximetry 98 97 95 Oxygen Delivery Method Room Air Room Air Room Air BMI result Body Mass Index 32.7 Vital signs have been reviewed and appear to be correct. Blood pressure elevated. Heart rate normal. Respiratory rate normal. Temperature normal. Oxygen saturation normal. Appearance: Alert. Oriented X3. No acute distress. Head: Normal external exam. Normocephalic. Atraumatic. No Ariza signs noted. No raccoon eyes noted Eyes: PERRLA. EOMI. Conjunctiva and sclera normal. Eyelids normal. ENT: TM's Normal. Pharynx normal. Uvula midline. Moist mucous membranes. No trismus noted. No drooling noted. No muffled voice noted. Neck: Normal inspection. Neck supple. FROM. No adenopathy. Thyroid Normal. No meningeal signs. No neck mass noted. CVS: Normal heart rate and rhythm. Heart sound normal. No murmurs noted. Pulses normal throughout. Respiratory: No respiratory distress. Painless inspiration. Breath sounds normal. No wheezes/rales/rhonchi noted. Chest nontender. No accessory muscle usage noted or decreased air movement noted. Abdomen: Soft and nontender. Bowel sounds normal in all 4 quadrants. No distention noted. No organomegaly noted. No visible injury noted. : Scrotal swelling, penile swelling, redness on the glans penis with white exudate. Back: No CVA tenderness. Full range of motion noted. Skin: Skin warm and dry. Normal skin color. Normal skin turgor. No rashes/lesions/lacerations noted. Extremities: No lower extremity edema. Extremities exhibit normal range of motion. Extremities nontender. Neuro: Oriented X 3. Cranial nerve exam: II-XII are grossly intact No motor deficit. No sensory deficit. Reflexes normal. Course Course Course Narrative: RME, this is a rapid medical exam performed by [facility] please refer to primary provider for complete H&P- 44 year old male presents for evaluation of a rash to his face and groin. Symptoms started yesterday and are itchy. He also complains of a burning sensation and scrotal swelling. He reports that his symptoms started yesterday. He denies any new soaps, lotions, detergents. He does have a history of eczema and has used Aveeno without improvement. He reports that last week he was urinating on a gutierrez and is unsure if that is related. On exam he has some scrotal and penile edema as well as balanitis. Plan for ultrasound of the scrotum and urinalysis Reevaluation(s) Reevaluation #1: Balanitis, no history of diabetes. Patient not concerned about STD, STD is pending Will start the patient on nystatin. Patient is requesting 5 days' worth of prednisone to help his eczema in the hands. Time: 15:25 Medical Decision Making Differential Diagnosis Differential Diagnoses: The differential diagnosis associated with the presentation includes (UTI, pyelonephritis, STD, epididymitis, testicular cyst, testicular abscess, testicular torsion.) Admission/Observation Consideration of admission/observation: Escalation of care including admission/observation considered Lab Data MDM Lab Attestation statement: I reviewed the patient's lab results. Labs: Lab Results 10/02/24 Range/Units 12:40 Urine Color Yellow Urine Appearance Clear Urine pH 5.5 (5.0-9.0) Ur Specific [place] 1.025 (1.005-1.025) Urine Protein Negative (Neg-Trace) mg/dL Urine Glucose (UA) Negative (Negative) mg/dL Urine Ketones Trace (Negative) mg/dL Urine Blood Negative (Negative) Urine Nitrite Negative (Negative) Ur Leukocyte Esterase Negative (Negative) Urine RBC 0-2 (0-2) /HPF Urine WBC 0-5 (0-5) /HPF Ur Squamous Epith Cells 0-2 (0-2) /HPF Urine Bacteria None Seen (None Seen) Hyaline Casts 0-2 (0-2) /LPF Independent Interpretation I performed an independent interpretation of an: Ultrasound (Testicular:. Normal testes 2. Incidental epididymal cyst on the left) Radiology Impression Discussion of test interpretation with radiology: I have reviewed the radiologist's reading. Discharge Plan Discharge Clinical Impression: Balanitis Patient Disposition: Home, Self-Care Instructions: Balanitis (ED) Prescriptions: New nystatin 100,000 unit/gram cream 1 appl topical BID Qty: 30 0RF prednisone 20 mg tablet 20 mg PO BID Qty: 10 0RF No Action ibuprofen 800 mg tablet 800 mg PO Q8H PRN (Reason: pain) Qty: 14 0RF acetaminophen [Tylenol Extra Strength] 500 mg tablet 1,000 mg PO QID PRN (Reason: fever or pain) Qty: 14 0RF hydrocortisone 2.5 % ointment 1 appl topical QD-TID PRN (Reason: skin irritation) Qty: 454 0RF oxycodone 5 mg tablet 5 mg PO BID PRN (Reason: pain) Qty: 10 0RF ibuprofen 600 mg tablet 600 mg PO Q6H PRN (Reason: pain) Qty: 20 0RF sulfamethoxazole-trimethoprim [Bactrim DS] 800-160 mg tablet 1 tab PO Q12H Qty: 14 0RF mupirocin 2 % ointment 1 appl topical BID Qty: 15 0RF triamcinolone acetonide 0.025 % ointment 1 appl topical BID Qty: 80 0RF hydrocortisone acetate 0.5 % cream 1 appl topical BID PRN (Reason: eczema) Qty: 28.4 0RF Rx Instructions: Please place on at night with a glove until the morning. prednisone 20 mg tablet 60 mg PO DAILY 7 Days Qty: 21 0RF ibuprofen 400 mg tablet 400 mg PO Q8H PRN (Reason: back p) Qty: 30 0RF acetaminophen 500 mg tablet 1,000 mg PO QID PRN (Reason: pain) Qty: 30 0RF ibuprofen 600 mg tablet 600 mg PO Q6H PRN (Reason: pain) Qty: 20 0RF prednisone 20 mg tablet 40 mg PO DAILY 5 Days Qty: 10 0RF cephalexin 500 mg capsule 500 mg PO Q6H 10 Days Qty: 40 0RF hydrocortisone 2.5 % ointment 1 appl topical QD-TID PRN (Reason: skin irritation) Qty: 454 0RF prednisone 10 mg tablet 10 mg PO DAILY 12 Days Qty: 12 0RF Rx Instructions: Prednisone taper dispense QS, 12 day course 60 mg by mouth once a day for 3 days Followed by 40 mg by mouth once a day for 3 days Followed by 20 mg by mouth once a day for 3 days Followed by 10 mg by mouth once a day for 3 days cetirizine 10 mg capsule 10 mg PO DAILY PRN (Reason: allergy symptoms) Qty: 14 0RF prednisone 20 mg tablet 40 mg PO DAILY Qty: 10 0RF hydrocortisone 2.5 % cream 1 appl topical BID 5 Days Qty: 20 0RF prednisone 10 mg tablet See Rx Instructions .ROUTE .COMPLEX Qty: 15 0RF Rx Instructions: 50mg (5 tabs) x 1 day, then 40mg (4 tabs) x 1 day, then 30mg (3 tabs) x 1 day, then 20mg (2 tabs) x 1 day, then 10mg (1 tab) x 1 day Print Language: Bruneian
[2024-10-02 12:00] VITALS: BP 118/83; PULSE 71; RESP 16; O2SAT 97
--- NOTE | 2024-10-02 12:10 | PC.NURSE ---
U/S at the bedside.
--- NOTE | 2024-10-02 12:11 | PC.NURSE ---
Patient is a 44 year old male presents for evaluation of a rash to his face and groin. Symptoms started yesterday and are itchy. He also complains of a burning sensation and scrotal swelling. He reports that his symptoms started yesterday. He denies any new soaps, lotions, detergents, states cleansed himself with alcohol yesterday He reports that last week he was urinating on a gutierrez and is unsure if that is related. He has some scrotal and penile edema. Lungs clear bilat. Respirations even and non-labored. Abdomen soft, non-tender with positive bowel sounds. Positive pedal pulses with no edema.
[2024-10-02 12:59] LABS: Appearance Urine Clear; Color Urine Yellow; Glucose Urine UA Negative (Negative); Leukocyte Esterase Urine Negative (Negative); Nitrite Urine Negative (Negative); PH 5.5 (5.0-9.0); Specific Gravity - Urine 1.025 (1.005-1.025); Urine Blood Negative (Negative); Urine Ketones Trace mg/dL (Negative); Urine Protein Negative (Neg-Trace)
[2024-10-02 13:05] LABS: Bacteria Urine None Seen (None Seen); Hyaline Casts Urine 0-2 /LPF (0-2); RBC Urine 0-2 /HPF (0-2); Squamous Epithelial Cell Urine 0-2 /HPF (0-2); WBC Urine 0-5 /HPF (0-5)
[2024-10-02 14:00] VITALS: BP 111/71; PULSE 60; RESP 16; TEMP 36.4; O2SAT 95
[2024-10-02 15:33] LABS: CT PCR NOT DETECTED (Not Detect.); NG PCR NOT DETECTED (Not Detect.)
[2024-10-02 15:53] VITALS: BP 111/71; PULSE 60; RESP 16; TEMP 36.4; O2SAT 95
[2024-10-02 15:55] LABS: Glucose, Whole Blood 109 mg/dL (60-115)
== END 2024-10-02 15:53 | disposition home or self-care (01) ==
PROVIDERS: Physician Assistant; Emergency Provider Emergency Medicine
DX: N48.1 Balanitis (principal); L30.9 Dermatitis, unspecified; Z79.899 Other long term (current) drug therapy
CPT/HCPCS: 76870; 81001; 82947; 87491; 87591; 93975; 99284

== ENCOUNTER → 2024-10-02 11:43 | Outpatient (BNV) | payer MEDICAID, SELFPAY | PROVIDERS: Emergency Provider Emergency Medicine; Visit Provider Radiology Diagnostic Radiology | DX: N50.3 Cyst of epididymis (principal) | CPT/HCPCS: 93975 ==

== ENCOUNTER 2025-01-27 12:37 | Emergency (ER) | payer OTHER, SELFPAY ==
[2025-01-27 12:40] VITALS: BP 135/88; PULSE 88; RESP 16; TEMP 36.3; O2SAT 96; BMI 32.8
--- NOTE | 2025-01-27 12:41 | ED.GENADULT ---
HPI - General Adult General Chief complaint: General Medical Stated complaint: allergic reaction Time Seen by Provider: 01/27/25 12:40 Source: patient, RN notes reviewed and old records reviewed Mode of arrival: ambulatory Limitations: no limitations History of Present Illness ED Provider: Piotr PONCE narrative: Patient is a 44-year-old male presenting to the emergency department with complaint of pruritic rash after doing his laundry at the [facility]. States has had similar reaction in the past after coming into contact with fragranced detergents 2 days ago. Taking benadryl with little relief, states prednisone has been helpful in the past. Denies any shortness of breath, wheezing. Denies swelling to lips, tongue, difficulty swallowing. MD complaint: rash Onset (ago): day(s) Related Data Previous Rx's ?Medication ?Instructions ?Recorded mupirocin 2 % topical ointment 1 appl topical BID #15 grams 07/22/20 sulfamethoxazole 800 1 tab PO Q12H #14 tabs 07/22/20 mg-trimethoprim 160 mg tablet (Bactrim DS) triamcinolone acetonide 0.025 % 1 appl topical BID #80 grams 11/18/20 topical ointment hydrocortisone acetate 0.5 % 1 appl topical BID PRN eczema 01/07/21 topical cream #28.4 grams ibuprofen 400 mg tablet 400 mg PO Q8H PRN back p #30 tabs 01/07/21 prednisone 20 mg tablet 60 mg (3 x 20 mg) PO DAILY 01/07/21 dermatitis 7 days #21 tabs acetaminophen 500 mg tablet 1,000 mg (2 x 500 mg) PO QID PRN 01/24/21 (Tylenol Extra Strength) fever or pain #14 tabs hydrocortisone 2.5 % topical 1 appl topical QD-TID PRN skin 01/24/21 ointment irritation #454 grams ibuprofen 800 mg tablet 800 mg PO Q8H PRN pain #14 tabs 01/24/21 oxycodone 5 mg tablet 5 mg PO BID PRN pain #10 tabs 01/24/21 ibuprofen 600 mg tablet 600 mg PO Q6H PRN pain #20 tabs 01/30/21 cephalexin 500 mg capsule 500 mg PO Q6H 10 days #40 caps 04/13/21 hydrocortisone 2.5 % topical 1 appl topical QD-TID PRN skin 04/13/21 ointment irritation #454 grams prednisone 20 mg tablet 40 mg (2 x 20 mg) PO DAILY rash 5 04/13/21 days #10 tabs cetirizine 10 mg capsule 10 mg PO DAILY PRN allergy 04/28/21 symptoms #14 caps prednisone 10 mg tablet 10 mg PO DAILY 12 days #12 tabs 04/28/21 acetaminophen 500 mg tablet 1,000 mg (2 x 500 mg) PO QID PRN 05/28/22 pain #30 tabs ibuprofen 600 mg tablet 600 mg PO Q6H PRN pain #20 tabs 05/28/22 hydrocortisone 2.5 % topical cream 1 appl topical BID 5 days #20 grams 09/27/22 prednisone 20 mg tablet 40 mg (2 x 20 mg) PO DAILY #10 tabs 09/27/22 prednisone 10 mg tablet See Rx Instructions .Route 09/18/24 .COMPLEX #15 tabs nystatin 100,000 unit/gram topical 1 appl topical BID #30 grams 10/02/24 cream prednisone 20 mg tablet 20 mg PO BID #10 tabs 10/02/24 prednisone 10 mg tablet See Rx Instructions .Route 01/27/25 .COMPLEX #15 tabs Allergies Allergy/AdvReac Type Severity Reaction Status Date / Time doxycycline (DOXYCYCLINE) Allergy Unknown HIVES Verified 01/27/25 12:41 latex (LATEX) Allergy Unknown RASH Verified 01/27/25 12:41 Penicillins (PENICILLINS) Allergy Unknown SWELLING Verified 01/27/25 12:41 DETERGENT Allergy Intermediate RASH Uncoded 10/02/24 11:39 Review of Systems Review of Systems: As per HPI Yes all other systems are reviewed and are negative Constitutional: Constitutional: Reports as per HPI PMFSH Past Medical History Medical History Acute eczema Social History Social History Substance Use Type: Marijuana Do you have a plan to hurt others: No Plan Physical Exam ED Vital Signs: Vital Signs - 24 hr 01/27/25 12:40 Temperature 97.4 F Pulse Rate 88 Respiratory Rate 16 Blood Pressure 135/88 Pulse Oximetry 96 Oxygen Delivery Method Room Air BMI result Body Mass Index 32.8 Vital signs have been reviewed and appear to be correct. Blood pressure normal. Heart rate normal. Respiratory rate normal. Temperature normal. Oxygen saturation normal. Const General: cooperative, healthy appearing and no acute distress Orientation/consciousness: oriented to person, oriented to place, oriented to time and patient oriented x3 Limitations: no limitations HENMT Head: Yes normocephalic and Yes atraumatic Ears: external ears normal General nose exam: Normal external nose present Face and sinus: Yes face symmetric Mouth: Normal oral and palatal mucosa present, lip normal, tongue normal, oropharynx normal, moist mucous membranes, no audible dysphonia and no drooling Throat: Yes uvula midline and No uvular edema Eyes Pupils: Equal, round and reactive pupils present Neck Neck: Yes normal visual inspection and Yes supple Resp Effort & Inspection: normal respiratory effort and able to speak in complete sentences Auscultation: clear to auscultation bilaterally Cardio Rate: regular rate Rhythm: regular rhythm Heart sounds: S1 normal heart sound present and S2 normal heart sound present GI Palpation (GI): Soft to palpation and nontender Auscultation: normoactive bowel sounds General: Yes no CVA tenderness Back/Spine/Pelvis Back: no CVA tenderness Skin Other: fine erythematous maculopapular rash to trunk, extremities General skin exam: elasticity normal and turgor normal Neuro General: oriented to person, oriented to place, oriented to time, patient oriented x3, moves all extremities, no focal motor deficits and CN's II-XI intact bilaterally Cranial nerves: Yes Equal, round and reactive pupils present Cognition (Neuro): normal cognition Extrem General: Yes full ROM, Yes no pedal edema and Yes no calf tenderness Psych Mental Status: mental status grossly normal Affect: normal affect Thought process: Normal thought process present Medical Decision Making Medical Decision Making MDM Narrative: Patient is a 44-year-old male presenting to the emergency department with complaint of pruritic rash after doing his laundry at the [facility]. On exam patient is awake, A+Ox3, VS WNL, afebrile, normal neurological exam without focal deficits, physical exam findings as above. Given reported symptoms and physical exam findings, initial differential includes but is not limited to contact dermatitis, atopic dermatitis, viral exanthem. He denies any other symptoms, less likely viral. History of similar rash r/t detergent in the past. Will treat with prednisone taper. Advised switching from benadryl to a 2nd generation antihistamine. Return precautions discussed. Patient verbalized understanding of and agreement with plan. Differential Diagnosis Differential Diagnoses: The differential diagnosis associated with the presentation includes as per [facility] Admission/Observation Consideration of admission/observation: Escalation of care including admission/observation considered Patient would have been admitted to the hospital had their clinical presentation warranted hospital admission. External Record Review External record reviewed: Inpatient record, Office record and Outpatient record Prescription Management I considered prescription management with: Other Discharge Plan Discharge Clinical Impression: Contact dermatitis Qualifiers: Contact dermatitis type: irritant Contact dermatitis trigger: detergents Qualified Code(s): L24.0 - Irritant contact dermatitis due to detergents Patient Disposition: Home, Self-Care Instructions: Contact Dermatitis (DC) Additional Instructions: You were evaluated in the emergency department today for a rash. Your evaluation did not reveal evidence of conditions requiring emergent medical treatment. You are being prescribed a tapering dose of a steroid called prednisone to decrease inflammation. We also recommend that you take a daily antihistamine such as loratadine (Claritin) or cetirizine (Zyrtec). You can also add over the counter famotidine (Pepcid) which is a different type of antihistamine. You can apply a thick unscented lotion to the affected areas such as Eucerine or Vanicream several times daily. Follow up with your primary care provider this week. If your symptoms do not improve, follow up with a side trimmer. Return to the emergency department if you develop difficulty breathing or shortness of breath, swelling to lips, tongue, fever, rash inside your mouth or to your palms/soles or any other concerning symptoms. Prescriptions: New prednisone 10 mg tablet See Rx Instructions .ROUTE .COMPLEX Qty: 15 0RF Rx Instructions: 50mg (5 tabs) x1 day, then 40 mg (4 tabs) x1 day, then 30 mg (3 tabs) x1 day, then 20 mg (2 tabs) times 1 day, then 10 mg (1 tab) x1 day No Action ibuprofen 800 mg tablet 800 mg PO Q8H PRN (Reason: pain) Qty: 14 0RF acetaminophen [Tylenol Extra Strength] 500 mg tablet 1,000 mg PO QID PRN (Reason: fever or pain) Qty: 14 0RF hydrocortisone 2.5 % ointment 1 appl topical QD-TID PRN (Reason: skin irritation) Qty: 454 0RF oxycodone 5 mg tablet 5 mg PO BID PRN (Reason: pain) Qty: 10 0RF ibuprofen 600 mg tablet 600 mg PO Q6H PRN (Reason: pain) Qty: 20 0RF sulfamethoxazole-trimethoprim [Bactrim DS] 800-160 mg tablet 1 tab PO Q12H Qty: 14 0RF mupirocin 2 % ointment 1 appl topical BID Qty: 15 0RF triamcinolone acetonide 0.025 % ointment 1 appl topical BID Qty: 80 0RF hydrocortisone acetate 0.5 % cream 1 appl topical BID PRN (Reason: eczema) Qty: 28.4 0RF Rx Instructions: Please place on at night with a glove until the morning. prednisone 20 mg tablet 60 mg PO DAILY 7 Days Qty: 21 0RF ibuprofen 400 mg tablet 400 mg PO Q8H PRN (Reason: back p) Qty: 30 0RF acetaminophen 500 mg tablet 1,000 mg PO QID PRN (Reason: pain) Qty: 30 0RF ibuprofen 600 mg tablet 600 mg PO Q6H PRN (Reason: pain) Qty: 20 0RF prednisone 20 mg tablet 40 mg PO DAILY 5 Days Qty: 10 0RF cephalexin 500 mg capsule 500 mg PO Q6H 10 Days Qty: 40 0RF hydrocortisone 2.5 % ointment 1 appl topical QD-TID PRN (Reason: skin irritation) Qty: 454 0RF prednisone 10 mg tablet 10 mg PO DAILY 12 Days Qty: 12 0RF Rx Instructions: Prednisone taper dispense QS, 12 day course 60 mg by mouth once a day for 3 days Followed by 40 mg by mouth once a day for 3 days Followed by 20 mg by mouth once a day for 3 days Followed by 10 mg by mouth once a day for 3 days cetirizine 10 mg capsule 10 mg PO DAILY PRN (Reason: allergy symptoms) Qty: 14 0RF prednisone 20 mg tablet 40 mg PO DAILY Qty: 10 0RF hydrocortisone 2.5 % cream 1 appl topical BID 5 Days Qty: 20 0RF prednisone 10 mg tablet See Rx Instructions .ROUTE .COMPLEX Qty: 15 0RF Rx Instructions: 50mg (5 tabs) x 1 day, then 40mg (4 tabs) x 1 day, then 30mg (3 tabs) x 1 day, then 20mg (2 tabs) x 1 day, then 10mg (1 tab) x 1 day nystatin 100,000 unit/gram cream 1 appl topical BID Qty: 30 0RF prednisone 20 mg tablet 20 mg PO BID Qty: 10 0RF Print Language: Niuean
--- OUTSIDE RECORDS SUMMARY | 2025-01-27 13:11 | XMS_ITS | Clinical Summary ---
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 Care Teams Soaking Pits Supervisor Relationship Specialty Start Date End Date Pcp, Not Required [address] [place] [id number] PCP - General 02/26/22 Additional Source Comments The information contained in this document represents components of the legal health record. It is not the complete legal health record.[facility]
== END 2025-01-27 15:22 | disposition home or self-care (01) ==
PROVIDERS: Emergency Provider Emergency Medicine
DX: L25.0 Unspecified contact dermatitis due to cosmetics (principal)
CPT/HCPCS: 99281; 99283

== ENCOUNTER 2025-02-16 08:56 | Emergency (ER) | payer OTHER, SELFPAY ==
[2025-02-16 09:09] VITALS: BP 146/91; PULSE 87; RESP 18; TEMP 36.3; O2SAT 99; BMI 33.0
--- NOTE | 2025-02-16 09:11 | ED_ITS ---
HPI - Skin/Abscess/Foreign Bdy General Chief complaint: Skin/Abscess/Foreign Body Stated complaint: eczema Time Seen by Provider: 02/16/25 09:11 Source: patient Mode of arrival: ambulatory Limitations: no limitations History of Present Illness ED Provider: JASMIN TORRES PA-C HPI narrative: 44 year old male with pmhx significant for eczema presents to the ED today for evaluation of eczema rash to bilateral hands x1 week. Reports recent allergic reaction to a new detergent. He was evaluated in the ED for this 2-3 weeks ago, started on a Prednisone taper, with resolution of allergic reaction. Since this time reports flare of eczema to bilateral hands. Using OTC Aquaphor without relief. Related Data Previous Rx's ?Medication ?Instructions ?Recorded mupirocin 2 % topical ointment 1 appl topical BID #15 grams 07/22/20 sulfamethoxazole 800 1 tab PO Q12H #14 tabs 07/22 mg-trimethoprim 160 mg tablet (Bactrim DS) triamcinolone acetonide 0.025 % 1 appl topical BID #80 grams 11/18/20 topical ointment hydrocortisone acetate 0.5 % 1 appl topical BID PRN ec zema 01/07/21 topical cream #28.4 grams ibuprofen 400 mg tablet 400 mg PO Q8H PRN back p #30 tabs 01/07/21 prednisone 20 mg tablet 60 mg (3 x 20 mg) PO DAILY 0 01/07/21 dermatitis 7 days #21 tabs acetaminophen 500 mg tablet 1,000 mg (2 x 500 mg) PO Q ID PRN 01/24/21 (Tylenol Extra Strength) fever or pain #14 tabs hydrocortisone 2.5 % topical 1 appl topical QD-TID PRN skin 01/24/21 ointment irritation #454 grams ibuprofen 800 mg tablet 800 mg PO Q8H PRN pain #14 t abs 01/24/21 oxycodone 5 mg tablet 5 mg PO BID PRN pain #10 tab s 01/24/21 ibuprofen 600 mg tablet 600 mg PO Q6H PRN pain #20 t abs 01/30/21 cephalexin 500 mg capsule 500 mg PO Q6H 10 days #40 ca ps 04/13/21 hydrocortisone 2.5 % topical 1 appl topical QD-TID PRN skin 04/13/21 ointment irritation #454 grams prednisone 20 mg tablet 40 mg (2 x 20 mg) PO DAILY r esteban 5 04/13/21 days #10 tabs cetirizine 10 mg capsule 10 mg PO DAILY PRN allergy 1 06/28/20 symptoms #14 caps prednisone 10 mg tablet 10 mg PO DAILY 12 days #12 t abs 04/28/21 acetaminophen 500 mg tablet 1,000 mg (2 x 500 mg) PO Q ID PRN 05/28/22 pain #30 tabs ibuprofen 600 mg tablet 600 mg PO Q6H PRN pain #20 t abs 05/28/22 hydrocortisone 2.5 % topical cream 1 appl topical BID 5 days #20 grams 09/27/22 prednisone 20 mg tablet 40 mg (2 x 20 mg) PO DAILY # 10 tabs 09/27/22 prednisone 10 mg tablet See Rx Instructions .Route 0 09/18/24 .COMPLEX #15 tabs nystatin 100,000 unit/gram topical 1 appl topical BID #30 grams 10/02/24 cream prednisone 20 mg tablet 20 mg PO BID #10 tabs prednisone 10 mg tablet See Rx Instructions .Route 0 01/27/25 .COMPLEX #15 tabs hydrocortisone 2.5 % topical cream 1 appl topical BID #20 grams 02/16/25 prednisone 20 mg tablet 40 mg (2 x 20 mg) PO DAILY 5 days 02/16/25 #10 tabs Allergies Allergy/AdvReac Type Severity Reaction Status Date / Time doxycycline (DOXYCYCLINE) Allergy Unknown HIVES Verified 02/16/25 09:11 latex (LATEX) Allergy Unknown RASH Verified 02/16/25 09:11 Penicillins (PENICILLINS) Allergy Unknown SWELLING Verified 02/16/25 09:11 DETERGENT Allergy Intermediate RASH Uncoded 02/16/25 09:11 Review of Systems Review of Systems: Yes all other systems are reviewed and are negative [facility] Past Medical History Attestation statement: The following information was validated with the patient. Source: old records reviewed and nursing notes reviewed Medical History Acute eczema Social History Social History Substance Use Type: Marijuana Advance Directives: No Advance Directives Information Provided: Yes Do you have a plan to hurt others: No Plan Physical Exam Vital Signs: Vital Signs: Last Vital Signs Temp 97.4 F 02/16/25 09:27 Pulse 87 02/16/25 09:27 Resp 18 02/16/25 09:27 BP 146/91 H 02/16/25 09:27 Pulse Ox 99 02/16/25 09:27 O2 Del Method Room Air 02/16/25 09:27 BMI result Body Mass Index 33.0 Hypertensive, vitals otherwise WNL General: Well appearing, in no acute distress. Skin: +eczematous lesions noted to palmar surfaces of bilateral hands, no superimposed infection Head: Normocephalic, atraumatic. EENT: Hearing is intact b/l. Conjunctiva clear. Sclera is anicteric. PERRLA. EOM intact. Moist mucous membranes.? Cardiac: Chest wall symmetric Lungs: Normal respiratory effort without accessory muscle use Ext: +see above. Neuro: AOx3. Normal speech. Ambulating with steady gait. Medical Decision Making Medical Decision Making MDM Narrative: 44 year old male with pmhx significant for eczema presents to the ED today for evaluation of eczema rash to bilateral hands x1 week. on exam, eczematous lesions noted to palmar surfaces of bilateral hands, no superimposed infection Differential diagnosis includes contact/atopic/eczematous dermatitis, psoriasis. History and exam findings not consistent with lyme/tick bourne illness, herpes zoster/simplex, scabies, HFM,? dangerous etiologies of rash such as SJS/TEN, or secondary dangerous causes such as petechial rashes from thrombocytopenia or rickettsial infections.? Plan at this time is to treat symptomatically, instruct to follow up with PCP or derm PRN. Differential Diagnosis Differential Diagnoses: The differential diagnosis associated with the presentation includes as above. Admission/Observation not indicated. External Record Review External record reviewed: Inpatient record Prescription Management I considered prescription management with: Other (prednisone, hydrocortisone) Chronic Conditions Patient?s care impacted by: Other (eczema) Social Determinants Patient?s care significantly limited by Social Determinants of Health including: Other Social Determinant of Health Discharge Plan Discharge Clinical Impression: Eczema Patient Disposition: Home, Self-Care Instructions: Dermatitis (ED) Additional Instructions: You were evaluated in the ED today with concerns of eczema rash to hands. Take prednisone x5 days. Use steroid cream. Avoid contact with face. Follow up with PCP as needed. Return with new or worsening symptoms. In the case of an emergency call 911. Prescriptions: New prednisone 20 mg tablet 40 mg PO DAILY 5 Days Qty: 10 0RF hydrocortisone 2.5 % cream 1 appl topical BID Qty: 20 0RF Rx Instructions: apply to hands twice daily. avoid touching your face as steroid cream thins the skin. No Action ibuprofen 800 mg tablet 800 mg PO Q8H PRN (Reason: pain) Qty: 14 0RF acetaminophen [Tylenol Extra Strength] 500 mg tablet 1,000 mg PO QID PRN (Reason: fever or pain) Qty: 14 0RF hydrocortisone 2.5 % ointment 1 appl topical QD-TID PRN (Reason: skin irritation) Qty: 454 0RF oxycodone 5 mg tablet 5 mg PO BID PRN (Reason: pain) Qty: 10 0RF ibuprofen 600 mg tablet 600 mg PO Q6H PRN (Reason: pain) Qty: 20 0RF sulfamethoxazole-trimethoprim [Bactrim DS] 800-160 mg tablet 1 tab PO Q12H Qty: 14 0RF mupirocin 2 % ointment 1 appl topical BID Qty: 15 0RF triamcinolone acetonide 0.025 % ointment 1 appl topical BID Qty: 80 0RF hydrocortisone acetate 0.5 % cream 1 appl topical BID PRN (Reason: eczema) Qty: 28.4 0RF Rx Instructions: Please place on at night with a glove until the morning. prednisone 20 mg tablet 60 mg PO DAILY 7 Days Qty: 21 0RF ibuprofen 400 mg tablet 400 mg PO Q8H PRN (Reason: back p) Qty: 30 0RF acetaminophen 500 mg tablet 1,000 mg PO QID PRN (Reason: pain) Qty: 30 0RF ibuprofen 600 mg tablet 600 mg PO Q6H PRN (Reason: pain) Qty: 20 0RF prednisone 20 mg tablet 40 mg PO DAILY 5 Days Qty: 10 0RF cephalexin 500 mg capsule 500 mg PO Q6H 10 Days Qty: 40 0RF hydrocortisone 2.5 % ointment 1 appl topical QD-TID PRN (Reason: skin irritation) Qty: 454 0RF prednisone 10 mg tablet 10 mg PO DAILY 12 Days Qty: 12 0RF Rx Instructions: Prednisone taper dispense QS, 12 day course 60 mg by mouth once a day for 3 days Followed by 40 mg by mouth once a day for 3 days Followed by 20 mg by mouth once a day for 3 days Followed by 10 mg by mouth once a day for 3 days cetirizine 10 mg capsule 10 mg PO DAILY PRN (Reason: allergy symptoms) Qty: 14 0RF prednisone 20 mg tablet 40 mg PO DAILY Qty: 10 0RF hydrocortisone 2.5 % cream 1 appl topical BID 5 Days Qty: 20 0RF prednisone 10 mg tablet See Rx Instructions .ROUTE .COMPLEX Qty: 15 0RF Rx Instructions: 50mg (5 tabs) x 1 day, then 40mg (4 tabs) x 1 day, then 30mg (3 tabs) x 1 day, then 20mg (2 tabs) x 1 day, then 10mg (1 tab) x 1 day nystatin 100,000 unit/gram cream 1 appl topical BID Qty: 30 0RF prednisone 20 mg tablet 20 mg PO BID Qty: 10 0RF prednisone 10 mg tablet See Rx Instructions .ROUTE .COMPLEX Qty: 15 0RF Rx Instructions: 50mg (5 tabs) x1 day, then 40 mg (4 tabs) x1 day, then 30 mg (3 tabs) x1 day, then 20 mg (2 tabs) times 1 day, then 10 mg (1 tab) x1 day Referrals: Physician,None [Primary Care Provider, Medical] Interventions: ED Discharge Assessment Last Done: 02/16/25 09:27 Discharge Date/Time: 02/16/25 09:28 Print Language: Central African
[2025-02-16 09:27] VITALS: BP 146/91; PULSE 87; RESP 18; TEMP 36.3; O2SAT 99
--- OUTSIDE RECORDS SUMMARY | 2025-02-16 11:00 | XMS_ITS | Clinical Summary ---
Author Organization [facility] Address [address] [place] [address] Phone Care Team Providers Care Tariff Compiling Clerk Name Role Phone Pcp, Not Required Primary [...] file Medical Devices Not on file Insurance [employer] [facility] [place] [address] [place] [address] [employer] [place] [address] [place] [address] [employer]ENTIAL [facility] Care Teams Tariff Compiling Clerk Relationship Specialty Start Date End Date Pcp, Not Required [address] [place] [id number] PCP - General 02/26/22 Additional Source Comments The information contained in this document represents components of the legal health record. It is not the complete legal health record.[facility]
== END 2025-02-16 09:28 | disposition home or self-care (01) ==
PROVIDERS: Emergency Provider Emergency Medicine
DX: L30.9 Dermatitis, unspecified (principal); R21 Rash and other nonspecific skin eruption
CPT/HCPCS: 99282; 99283

== ENCOUNTER 2025-03-02 21:11 | Emergency (ER) | payer OTHER, SELFPAY ==
[2025-03-02 21:28] VITALS: BP 121/79; PULSE 92; RESP 20; TEMP 36.9; O2SAT 98; BMI 31.3
--- OUTSIDE RECORDS SUMMARY | 2025-03-02 22:13 | XMS_ITS | Clinical Summary ---
Author Organization [facility] Address [address] [place] [address] Phone Care Team Providers Care Mat Cleaning Machine Operator Name Role Phone Pcp, Not Required Primary [...] file Medical Devices Not on file Insurance [employer] [facility] [place] [place] [address] [employer] [facility] [place] [address] [place] [address] [employer] Care Teams Mat Cleaning Machine Operator Relationship Specialty Start Date End Date Pcp, Not Required [address] [place] [id number] PCP - General 02/26/22 Additional Source Comments The information contained in this document represents components of the legal health record. It is not the complete legal health record.[facility]
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
[2025-03-03] MEDS: Diphth,Pertus(ACell),Tet Adult 0.5 ML SYRINGE IM
[2025-03-03 00:07] VITALS: BP 121/79; PULSE 92; RESP 20; TEMP 36.9; O2SAT 98
== END 2025-03-03 00:07 | disposition home or self-care (01) ==
PROVIDERS: Emergency Provider Student in an Organized Health Care Education/Training Program
DX: L30.9 Dermatitis, unspecified (principal)
CPT/HCPCS: 90471; 90715; 99283; 99284

== ENCOUNTER 2025-03-14 13:07 | Emergency (ER) | payer OTHER, SELFPAY ==
[2025-03-14 13:56] VITALS: BP 121/86; PULSE 81; RESP 16; TEMP 36.6; O2SAT 97; BMI 31.4
--- NOTE | 2025-03-14 14:06 | ED_ITS ---
HPI - Skin/Abscess/Foreign Bdy General Chief complaint: Skin/Abscess/Foreign Body Stated complaint: Swollen Hands Time Seen by Provider: 03/14/25 14:05 Source: patient and RN notes reviewed Mode of arrival: ambulatory Limitations: no limitations History of Present Illness ED Provider: Anastasiya Hendrix PA-C HPI narrative: This is a 45 year old male come up with a past medical history of eczema, who presents the emergency department with complaints of bilateral hand rash and swelling. 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 He states that these gloves cause him to have worsening eczema on his bilateral hands. He states that he has been seen here multiple times for similar symptoms. His symptoms are alleviated with course of Prednisone, however when he exposes himself to these gloves again he develops this rash. He has not followed up with dermatology. He denies any fevers or chills. No other complaints or concerns at this time. Onset (ago): day(s) Location: L hand and R hand Associated symptoms: denies other symptoms Treatments prior to arrival: none Related Data Previous Rx's ?Medication ?Instructions ?Recorded mupirocin 2 % topical ointment 1 appl topical BID #15 grams 07/22/20 sulfamethoxazole 800 1 tab PO Q12H #14 tabs 07/22 mg-trimethoprim 160 mg tablet (Bactrim DS) triamcinolone acetonide 0.025 % 1 appl topical BID #80 grams 11/18/20 topical ointment hydrocortisone acetate 0.5 % 1 appl topical BID PRN ec zema 01/07/21 topical cream #28.4 grams ibuprofen 400 mg tablet 400 mg PO Q8H PRN back p #30 tabs 01/07/21 prednisone 20 mg tablet 60 mg (3 x 20 mg) PO DAILY 0 01/07/21 dermatitis 7 days #21 tabs acetaminophen 500 mg tablet 1,000 mg (2 x 500 mg) PO Q ID PRN 01/24/21 (Tylenol Extra Strength) fever or pain #14 tabs hydrocortisone 2.5 % topical 1 appl topical QD-TID PRN skin 01/24/21 ointment irritation #454 grams ibuprofen 800 mg tablet 800 mg PO Q8H PRN pain #14 t abs 01/24/21 oxycodone 5 mg tablet 5 mg PO BID PRN pain #10 tab s 01/24/21 ibuprofen 600 mg tablet 600 mg PO Q6H PRN pain #20 t abs 01/30/21 cephalexin 500 mg capsule 500 mg PO Q6H 10 days #40 ca ps 04/13/21 hydrocortisone 2.5 % topical 1 appl topical QD-TID PRN skin 04/13/21 ointment irritation #454 grams prednisone 20 mg tablet 40 mg (2 x 20 mg) PO DAILY r esteban 5 04/13/21 days #10 tabs cetirizine 10 mg capsule 10 mg PO DAILY PRN allergy 1 06/28/20 symptoms #14 caps prednisone 10 mg tablet 10 mg PO DAILY 12 days #12 t abs 04/28/21 acetaminophen 500 mg tablet 1,000 mg (2 x 500 mg) PO Q ID PRN 05/28/22 pain #30 tabs ibuprofen 600 mg tablet 600 mg PO Q6H PRN pain #20 t abs 05/28/22 hydrocortisone 2.5 % topical cream 1 appl topical BID 5 days #20 grams 09/27/22 prednisone 20 mg tablet 40 mg (2 x 20 mg) PO DAILY # 10 tabs 09/27/22 prednisone 10 mg tablet See Rx Instructions .Route 0 09/18/24 .COMPLEX #15 tabs nystatin 100,000 unit/gram topical 1 appl topical BID #30 grams 10/02/24 cream prednisone 20 mg tablet 20 mg PO BID #10 tabs prednisone 10 mg tablet See Rx Instructions .Route 0 01/27/25 .COMPLEX #15 tabs hydrocortisone 2.5 % topical cream 1 appl topical BID #20 grams 02/16/25 prednisone 20 mg tablet 40 mg (2 x 20 mg) PO DAILY 5 days 02/16/25 #10 tabs prednisone 20 mg tablet 40 mg (2 x 20 mg) PO DAILY # 8 tabs 03/02/25 prednisone 20 mg tablet 40 mg (2 x 20 mg) PO DAILY 5 days 03/14/25 #10 tabs Allergies Allergy/AdvReac Type Severity Reaction Status Date / Time doxycycline (DOXYCYCLINE) Allergy Unknown HIVES Verified 03/14/25 14:00 latex (LATEX) Allergy Unknown RASH Verified 03/14/25 14:00 Penicillins (PENICILLINS) Allergy Unknown SWELLING Verified 03/14/25 14:00 DETERGENT Allergy Intermediate RASH Uncoded 03/02/25 21:28 Review of Systems 2 Review of Systems: Constitutional : No Fever, No Chills ENT/Mouth : No sore throat, No Rhinorrhea Eyes: No Eye Pain, No Swelling, No Redness Cardiovascular : No Chest Pain, No SOB Respiratory : No Cough, No Sputum Gastrointestinal : No Nausea, No Vomiting, No Diarrhea, No abdominal Pain Genitourinary : No Dysuria, No Hematuria Musculoskeletal : No joint pain, No Myalgias, No Joint Swelling Skin : No Skin Lesions Neuro : No Weakness, No Numbness, No Headache All other systems reviewed and are negative Yes all other systems are reviewed and are negative Constitutional: Constitutional: Reports as per [facility] Past Medical History Medical History Acute eczema Social History Social History Substance Use Type: Marijuana Advance Directives: No Advance Directives Information Provided: No Physical Exam 2 Exam: Exam: General: Awake, alert, and oriented X3. No acute distress. HEENT: Normal inspection CVS: Normal heart rate and rhythm. Pulses normal. Respiratory: No respiratory distress Skin: BL palms with cracking, plaque like skin changes. No erythema or warmth. Sensation intact. Full ROM. Extremities: See photo Neuro: Oriented X 3. No motor deficit. No sensory deficit. Vital Signs: Vital Signs: Last Vital Signs Temp 97.8 F 03/14/25 13:56 Pulse 81 03/14/25 13:56 Resp 16 03/14/25 13:56 BP 121/86 03/14/25 13:56 Pulse Ox 97 03/14/25 13:56 O2 Del Method Room Air 03/14/25 13:56 BMI result Body Mass Index 31.4 Medical Decision Making Medical Decision Making MDM Narrative: This is a 45 year old male come up with a past medical history of eczema, who presents the emergency department with complaints of bilateral hand rash and swelling. Patient reports that his symptoms worsen when using gloves at work period his symptoms improve with Prednisone. Patient has been seen here multiple times for this. 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 We'll discharge on Prednisone however urged the importance of seeing dermatology as this will continue to happen as he continues to use these gloves at work period he understands and agrees with plan, patient stable for discharge. No evidence of infection at this time. Differential Diagnosis Differential Diagnoses: The differential diagnosis associated with the presentation includes atopic dermatitis, contact dermatitis, cellulitis, xeroderma Discharge Plan Discharge Clinical Impression: Eczema Patient Disposition: Home, Self-Care Instructions: Dyshidrotic Eczema (ED), Dermatitis (ED) Additional Instructions: You were seen in the emergency department due to severe eczema. Please take prescribed prednisone as directed, finish the entire course. You need to follow-up with the turn machine operator. Call today to make an appointment. Topical ointments can also help. If any new or worsening symptoms occur including but not limited to worsening pain, worsening cracking, fevers or chills, please seek emergent care. [facility] [address] [place] [address] [address], [place], [place] [id number] [facility] [address] [place] [address] [address], [place] [address] Prescriptions: New prednisone 20 mg tablet 40 mg PO DAILY 5 Days Qty: 10 0RF No Action ibuprofen 800 mg tablet 800 mg PO Q8H PRN (Reason: pain) Qty: 14 0RF acetaminophen [Tylenol Extra Strength] 500 mg tablet 1,000 mg PO QID PRN (Reason: fever or pain) Qty: 14 0RF hydrocortisone 2.5 % ointment 1 appl topical QD-TID PRN (Reason: skin irritation) Qty: 454 0RF oxycodone 5 mg tablet 5 mg PO BID PRN (Reason: pain) Qty: 10 0RF ibuprofen 600 mg tablet 600 mg PO Q6H PRN (Reason: pain) Qty: 20 0RF sulfamethoxazole-trimethoprim [Bactrim DS] 800-160 mg tablet 1 tab PO Q12H Qty: 14 0RF mupirocin 2 % ointment 1 appl topical BID Qty: 15 0RF triamcinolone acetonide 0.025 % ointment 1 appl topical BID Qty: 80 0RF hydrocortisone acetate 0.5 % cream 1 appl topical BID PRN (Reason: eczema) Qty: 28.4 0RF Rx Instructions: Please place on at night with a glove until the morning. prednisone 20 mg tablet 60 mg PO DAILY 7 Days Qty: 21 0RF ibuprofen 400 mg tablet 400 mg PO Q8H PRN (Reason: back p) Qty: 30 0RF acetaminophen 500 mg tablet 1,000 mg PO QID PRN (Reason: pain) Qty: 30 0RF ibuprofen 600 mg tablet 600 mg PO Q6H PRN (Reason: pain) Qty: 20 0RF prednisone 20 mg tablet 40 mg PO DAILY 5 Days Qty: 10 0RF cephalexin 500 mg capsule 500 mg PO Q6H 10 Days Qty: 40 0RF hydrocortisone 2.5 % ointment 1 appl topical QD-TID PRN (Reason: skin irritation) Qty: 454 0RF prednisone 10 mg tablet 10 mg PO DAILY 12 Days Qty: 12 0RF Rx Instructions: Prednisone taper dispense QS, 12 day course 60 mg by mouth once a day for 3 days Followed by 40 mg by mouth once a day for 3 days Followed by 20 mg by mouth once a day for 3 days Followed by 10 mg by mouth once a day for 3 days cetirizine 10 mg capsule 10 mg PO DAILY PRN (Reason: allergy symptoms) Qty: 14 0RF prednisone 20 mg tablet 40 mg PO DAILY Qty: 10 0RF hydrocortisone 2.5 % cream 1 appl topical BID 5 Days Qty: 20 0RF prednisone 10 mg tablet See Rx Instructions .ROUTE .COMPLEX Qty: 15 0RF Rx Instructions: 50mg (5 tabs) x 1 day, then 40mg (4 tabs) x 1 day, then 30mg (3 tabs) x 1 day, then 20mg (2 tabs) x 1 day, then 10mg (1 tab) x 1 day nystatin 100,000 unit/gram cream 1 appl topical BID Qty: 30 0RF prednisone 20 mg tablet 20 mg PO BID Qty: 10 0RF prednisone 10 mg tablet See Rx Instructions .ROUTE .COMPLEX Qty: 15 0RF Rx Instructions: 50mg (5 tabs) x1 day, then 40 mg (4 tabs) x1 day, then 30 mg (3 tabs) x1 day, then 20 mg (2 tabs) times 1 day, then 10 mg (1 tab) x1 day prednisone 20 mg tablet 40 mg PO DAILY 5 Days Qty: 10 0RF hydrocortisone 2.5 % cream 1 appl topical BID Qty: 20 0RF Rx Instructions: apply to hands twice daily. avoid touching your face as steroid cream thins the skin. prednisone 20 mg tablet 40 mg PO DAILY Qty: 8 0RF Stand Alone Forms: Work/School Release Discharge Date/Time: 03/14/25 14:12 Print Language: Cymro
--- NOTE | 2025-03-14 14:11 | PC.NURSE ---
pt was seen by provider during triage process and discharge plan was reviewed.
--- OUTSIDE RECORDS SUMMARY | 2025-03-14 16:43 | XMS_ITS | Clinical Summary ---
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 Care Teams Industrial Waste Treatment Technician Relationship Specialty Start Date End Date Pcp, Not Required [address] [place] [id number] PCP - General 02/26/22 Additional Source Comments The information contained in this document represents components of the legal health record. It is not the complete legal health record.[facility]
== END 2025-03-14 14:12 | disposition home or self-care (01) ==
LOC: HO.ED 14:11
PROVIDERS: Emergency Provider Emergency Medicine
DX: L30.9 Dermatitis, unspecified (principal); R21 Rash and other nonspecific skin eruption
CPT/HCPCS: 99281; 99282